=== PATIENT | male | born 1945 | race Caucasian/White ===

== ENCOUNTER → 2019-12-28 14:09 | Outpatient (CLI) | payer MEDICARE, SELFPAY ==
--- NOTE | ~2019-12-28 | XR_ITS ---
XR cervical spine 4-5V 12/28/2019 14:35 Indication: Left shoulder and neck pain Procedure: 4 view cervical spine Comparison: No prior studies for comparison. Findings: No prevertebral soft tissue abnormality. There is disc narrowing at C5-6 and C6-7. No preve rtebral soft tissue swelling. Mild multilevel uncinate hypertrophy. Lung apices are normal. Odontoid process within normal limits. No prevertebral soft tissue swelling. Impression: 1: Mild cervical spondylosis. Reviewed, dictated and finalized at location A. Impression: 1: Mild cervical spondylosis.
--- NOTE | ~2019-12-28 | XR_ITS ---
XR shoulder LT min 2V 12/28/2019 14:35 Indication: Left shoulder pain Procedure: 4 views left shoulder Comparison: No prior studies for comparison. Findings: There is mild polyarticular osteoarthritis of the left shoulder. No fracture or traumatic m alalignment. No focal soft tissue abnormality. Visualized lung parenchyma is unremarkable. Impression: 1: Mild polyarticular osteoarthritis of the left shoulder. Reviewed, dictated and finalized at location A. Impression: 1: Mild polyarticular osteoarthritis of the left shoulder.
== END ==
PROVIDERS: PCP Family Medicine; Visit Provider Family Medicine
DX: M47.892 Other spondylosis, cervical region (principal); M19.012 Primary osteoarthritis, left shoulder
CPT/HCPCS: 72050; 73030

== ENCOUNTER 2020-02-11 00:24 | Outpatient (CLI) | payer MEDICARE, SELFPAY ==
[2020-02-11 18:04] LABS: SARS-CoV-2 RNA PCR Negative
== END 2020-02-11 00:25 | disposition home or self-care (01) ==
LOC: ANHCOVIDDT 00:24
PROVIDERS: PCP Family Medicine; Visit Provider Internal Medicine Gastroenterology
DX: Z01.818 Encounter for other preprocedural examination (principal); Z20.828 Contact with and (suspected) exposure to other viral communicable diseases
CPT/HCPCS: 87635; C9803; U0003

== ENCOUNTER 2020-02-14 01:35 | Day surgery (SDC) | payer MEDICARE, SELFPAY ==
[2020-02-07 14:08] VITALS: BMI 23.6
--- NOTE | 2020-02-14 06:54 | P.PNAN_ITS ---
Anes - Initial Pre Proc Eval Procedure: Operation Date: 02/14/20 08:30 Proposed Procedures p Screening Colonoscopy - Zack Dukes MD Date/Time: 02/14/20 06:54 Surgeon: Zack Dukes MD Pre Op Diagnosis: Neoplasm Screening Patient Data Age: 74 Gender: M Height: 1.73 m Weight: 70.4 kg Allergies Allergy/AdvReac Type Severity Reaction Status Date / Time azithromycin AdvReac Mild upset Verified 02/14/20 07:21 stomach sulfamethoxazole AdvReac Mild Fever Verified 02/14/20 07:21 [From Bactrim] trimethoprim [From Bactrim] AdvReac Mild Fever Verified 02/14/20 07:21 Home Medications Medication Instructions Recorded Confirmed Type ascorbic acid (vitamin C) 250 mg 250 mg PO DAILY 08/26/19 02/07/20 History tablet aspirin 81 mg tablet,delayed 81 mg PO DAILY 08/26/19 02/07/20 History release atenolol 25 mg tablet 12.5 mg PO DAILY 08/26/19 02/07/20 History atorvastatin 20 mg tablet 20 mg PO DAILY 08/26/19 02/07/20 History loratadine 10 mg tablet 10 mg PO DAILY 08/26/19 02/07/20 History multivitamin 1 tablet PO DAILY 08/26/19 02/07/20 History peg 3350-electrolytes 236 240 ml PO Q10M #4000 ml 12/28/19 Rx gram-22.74 gram-6.74 gram-5.86 gram solution Patient hx anesthesia problems: none Family hx anesthesia problems: none PMFSH Past Medical History Medical History (Updated 02/14/20 @ 06:55 by Prem Ferrell MD) Actinic keratosis Adenomatous colon polyp CAD (coronary artery disease) non-obstructive Celiac disease High cholesterol Surgical History Surgical History H/O bilateral inguinal hernia repair H/O elbow surgery S/P lateral meniscus repair of right knee Family History Family History Mother Family history of Alzheimer's disease Father Family history of coronary artery disease Sibling Family history of coronary artery disease Family history of Alzheimer's disease Social History Social History (Updated 09/21/20 @ 16:12 by Randa Rosales Smoking status: Never smoker Second hand tobacco smoke exposure: No Alcohol intake: never Substance use: never Substance use type: does not use Living arrangements: with family Gender identity (if verbalized by the patient): Male Spiritual care concerns: No Anes - Eval Final PreProcedure Day of Procedure 02/14/20 06:54 Patient weight: normal Heart: regular rate and rhythm Lungs: clear to auscultation and normal air movement Airway: Mallampati scale class II Neurological: alert and oriented Last oral intake: >/= 8 hours ASA classification: III Emergent: no Anesthetic plan: proceed Anesthesia type and monitoring: general GIVS Informed Consent: The patient's anesthetic plan and its attendant risks and benefits were discussed with the patient/family/POA. Questions were solicited an d answers provided to the satisfaction of the patient/family/POA.
[2020-02-14 07:23] VITALS: BP 141/79; PULSE 71; RESP 14; TEMP 36.4; O2SAT 96; BMI 24.0
[2020-02-14] MEDS: LACTATED RINGERS 1,000 ML 150 ML IV CONT (07:31)
--- NOTE | 2020-02-14 08:43 | PM.HPGS ---
History of Present Illness History of Present Illness Consent: Risks, benefits, and alternatives have been discussed and questions answered. Patient agrees to proceed with procedure. Chief complaint: Neoplasm Screening Narrative: Cortes Garcia is a 74 year old male with colon polyps 2015 Review of Systems Constitutional: Constitutional: Denies headache(s) and Denies weakness Eyes: Eyes: Denies blurry vision ENT: Reports Normal hearing present, Denies headache(s) and Denies neck pain Cardiovascular: Cardiovascular: Denies chest pain and Denies dyspnea Respiratory: Respiratory: Denies dyspnea Gastrointestinal: Gastrointestinal: Reports no additional gastrointestinal complaints Genitourinary: Genitourinary: Denies dysuria Musculoskeletal: Musculoskeletal: Denies neck pain Integumentary/Breasts: Skin/Breast: Denies dry skin Neurologic: Reports Normal hearing present, Denies headache(s) and Denies weakness Psychiatric: Psychiatric: Denies anxiety Endocrine: Endocrine: Denies change in body appearance Hematologic/Lymphatic: Hematologic/Lymphatic: Denies easy bleeding Allergic/Immunologic: Allergic/Immunologic: Denies urticaria PMF Past Medical History Medical History (Updated 02/14/20 @ 06:55 by Prem Ferrell MD) Actinic keratosis Adenomatous colon polyp CAD (coronary artery disease) non-obstructive Celiac disease High cholesterol Surgical History Surgical History H/O bilateral inguinal hernia repair H/O elbow surgery S/P lateral meniscus repair of right knee Family History Family History Mother Family history of Alzheimer's disease Father Family history of coronary artery disease Sibling Family history of coronary artery disease Family history of Alzheimer's disease Social History Social History (Updated 12/26/19 @ 16:12 by Randa Carter) Smoking status: Never smoker Second hand tobacco smoke exposure: No Alcohol intake: never Substance use: never Substance use type: does not use Living arrangements: with family Gender identity (if verbalized by the patient): Male Spiritual care concerns: No Meds Home Medications and Allergies Home Medications Medication Instructions Recorded Confirmed Type ascorbic acid (vitamin C) 250 mg 250 mg PO DAILY 08/26/19 02/07/20 History tablet aspirin 81 mg tablet,delayed 81 mg PO DAILY 08/26/19 02/07/20 History release atenolol 25 mg tablet 12.5 mg PO DAILY 08/26/19 02/07/20 History atorvastatin 20 mg tablet 20 mg PO DAILY 08/26/19 02/07/20 History loratadine 10 mg tablet 10 mg PO DAILY 08/26/19 02/07/20 History multivitamin 1 tablet PO DAILY 08/26/19 02/07/20 History peg 3350-electrolytes 236 240 ml PO Q10M #4000 ml 12/28/19 Rx gram-22.74 gram-6.74 gram-5.86 gram solution Allergies Allergy/AdvReac Type Severity Reaction Status Date / Time azithromycin AdvReac Mild upset Verified 02/14/20 07:21 stomach sulfamethoxazole AdvReac Mild Fever Verified 02/14/20 07:21 [From Bactrim] trimethoprim [From Bactrim] AdvReac Mild Fever Verified 02/14/20 07:21 Vital Signs Vital Signs - 24 hr 02/14/20 07:23 Temperature 97.6 F Pulse Rate 71 Respiratory Rate 14 Blood Pressure 141/79 H Pulse Oximetry 96 Exam Const: General: comfortable and no acute distress HENMT: General nose exam: Normal nares present Eyes: General: appearance normal, both eyes and all related structures Neck: Neck: no JVD Resp: Auscultation: clear to auscultation bilaterally Cardio: Rate: regular rate Rhythm: regular rhythm GI: Inspection: non-distended GI Palp: Yes Soft to palpation Skin: General skin exam: normal color Neuro: General: gait normal Speech: normal speech Extrem: General: normal to inspection Psych: Mental Status: mental status grossly normal Assessment and Plan Assessment and pl
[2020-02-14 09:04] VITALS: BP 102/62; PULSE 67; RESP 17; O2SAT 99
[2020-02-14 09:14] VITALS: BP 113/75; PULSE 60; RESP 14; O2SAT 99
[2020-02-14 09:24] VITALS: BP 116/73; PULSE 62; RESP 16; O2SAT 99
== END 2020-02-14 09:40 | disposition home or self-care (01) ==
PROVIDERS: PCP Family Medicine; Visit Provider Internal Medicine Gastroenterology
PROC: 0DJD8ZZ Inspection of Lower Intestinal Tract, Via Natural or Artificial Opening Endoscopic (ICD-10-PCS; CPT 45378; principal; 2020-02-14 08:30)
DX: Z12.11 Encounter for screening for malignant neoplasm of colon (principal); D12.0 Benign neoplasm of cecum; K57.30 Diverticulosis of large intestine without perforation or abscess without bleeding; K64.8 Other hemorrhoids; I25.10 Atherosclerotic heart disease of native coronary artery without angina pectoris; E78.00 Pure hypercholesterolemia, unspecified; Z88.2 Allergy status to sulfonamides; Z88.1 Allergy status to other antibiotic agents; Z79.82 Long term (current) use of aspirin; Z79.899 Other long term (current) drug therapy
CPT/HCPCS: 45380; 45385; 88305; C9803; J2001; J2704; J7120; U0003

== ENCOUNTER → 2021-08-20 01:35 | Outpatient (CLI) | payer MEDICARE, SELFPAY ==
[2021-08-20 10:50] LABS: Influenza A QL RT-PCR Negative (Negative); Influenza B QL RT-PCR Negative (Negative); SARS-CoV-2 RNA PCR Negative
== END ==
PROVIDERS: PCP Family Medicine; Visit Provider Physician Assistant
DX: R68.89 Other general symptoms and signs (principal); Z20.822 Contact with and (suspected) exposure to COVID-19
CPT/HCPCS: 87502; C9803; U0003; U0005

== ENCOUNTER 2022-11-13 12:20 | Outpatient (CLI) | payer MEDICARE, SELFPAY ==
--- NOTE | ~2022-11-13 | XR_ITS ---
EXAMINATION: XR shoulder RT min 2V DATE: 11/13/2022 12:44 INDICATION: Right shoulder pain TECHNIQUE: AP internally and externally rotated, AP oblique externally rotated and transscapular Y vi ews of the right shoulder were obtained. COMPARISON: None FINDINGS: Normal alignment. No fracture.Mild glenohumeral and acromioclavicular osteoarthritis. Visualized por tion of the lungs are clear. Soft tissues are unremarkable. IMPRESSION: Mild right glenohumeral and acromioclavicular osteoarthritis. Reviewed, dictated and finalized at location L.
== END 2022-11-13 12:21 | disposition home or self-care (01) ==
PROVIDERS: PCP Family Medicine; Visit Provider Family Medicine
DX: M19.011 Primary osteoarthritis, right shoulder (principal)
CPT/HCPCS: 73030

== ENCOUNTER 2023-07-31 15:26 | Outpatient (CLI) | payer MEDICARE, SELFPAY ==
--- NOTE | ~2023-07-31 | MR_ITS ---
EXAMINATION: MR shoulder RT wo con DATE: 07/31/2023 16:29 INDICATION: Impingement syndrome of the right shoulder TECHNIQUE: Magnetic resonance imaging (MRI) of the right shoulder was performed without intravenous c ontrast. Sequences included axial PD-weighted FS FSE, coronal oblique PD-weighted FS FSE, coronal obl ique T2-weighted FS FSE, sagittal PD-weighted FS FSE, and sagittal T1-weighted SE. COMPARISON: None. FINDINGS: Coracoacromial arch: The acromion undersurface is curved in morphology (type II). Small anterior subacromial spur at the a cromial insertion of the normal coracoacromial ligament. Moderate acromioclavicular osteoarthritis. Rotator cuff: Mild supraspinatus tendinopathy without tear. The infraspinatus and teres minor tendons are normal. M ild subscapularis tendinopathy with very small tear at the superolateral most corner of the lesser tu berosity footplate measuring 4 mm craniocaudally and 3 mm medial to lateral. Normal rotator cuff musc le bulk and signal. Biceps tendon, glenoid labrum and glenohumeral cartilage: Long head of the biceps tendon is normal. Normal anterosuperior sublingual foramen. There is a superi or, anterior to posterior tear of the glenoid labrum (SLAP tear) of the posterosuperior glenoid labru m which extends from the 12:00 to the 9:00 position. More amorphous mild increased signal consistent with degeneration of the anteroinferior labrum. There are tiny marginal osteophytes along the inferio r glenoid. Mild partial-thickness cartilage loss with smooth chondral surface along the cephalad thir d of the glenoid and at the inferomedial aspect of the humeral head. Fluid: Physiologic amount of fluid in the glenohumeral joint and biceps tendon sheath. No loose osteochondr al bodies. No abnormal fluid in the subacromial/subdeltoid bursa to suggest bursitis. Bones: Bone alignment is normal. No fracture or pathologic marrow replacing process. IMPRESSION: 1. Mild glenohumeral osteoarthritis with SLAP tear at the base of the superior to posterior glenoid l abrum and more amorphous degeneration at the anteroinferior labrum. 2. Mild supraspinatus and subscapularis tendinopathy with very small tear at the superolateral corner of the lesser tuberosity footplate of the subscapularis tendon. 3. Moderate acromioclavicular osteoarthritis. Reviewed, dictated and finalized at location A. IMPRESSION: 1. Mild glenohumeral osteoarthritis with SLAP tear at the base of the superior to posterior glenoid labrum and more amorphous degeneration at the anteroinferi or labrum. 2. Mild supraspinatus and subscapularis tendinopathy with very small tear at th e superolateral corner of the lesser tuberosity footplate of the subscapularis tendon. 3. Moderate acromioclavicular osteoarthritis.
== END 2023-07-31 15:27 | disposition home or self-care (01) ==
PROVIDERS: PCP Family Medicine; Visit Provider Orthopaedic Surgery
DX: M75.41 Impingement syndrome of right shoulder (principal); M19.011 Primary osteoarthritis, right shoulder
CPT/HCPCS: 73221

== ENCOUNTER 2023-11-23 09:36 | Outpatient (CLI) | payer MEDICARE, SELFPAY ==
--- NOTE | ~2023-11-23 | MR_ITS ---
EXAMINATION: MR knee RT wo con DATE: 11/23/2023 10:20 INDICATION: Loose body at the right knee TECHNIQUE: Magnetic resonance imaging (MRI) of the right knee was performed without intravenous contr ast. Sequences included coronal PD-weighted FSE, coronal PD-weighted FS FSE, sagittal T2-weighted FS E, sagittal PD-weighted FS FSE, axial T1-weighted FSE and axial PD weighted fat saturated FSE. COMPARISON: None. FINDINGS: Medial compartment: Longitudinal horizontal tear extending to the inferior articular surface of the posterior body and po sterior horn of the medial meniscus. Partial-thickness chondral ulceration involving up to 50% the ca rtilage thickness along the lateral margin of the central weightbearing medial femoral condyle. Lateral compartment: Diffuse complex tear extending from anterior to the posterior horn of the lateral meniscus. Small oss icles along the peripheral margin of the anterior horn and anterior body the lateral meniscus which a ppears centered within the soft tissues posterior and the anterior recess and favor heterotopic ossif ication related to the meniscal tear as opposed to loose osteochondral bodies. Mild partial-thicknes s cartilage loss with tiny marginal osteophytes and minimal subarticular edema-like signal change at the anterolateral margin of the lateral tibial plateau. Cartilage in the lateral compartment is other barker relatively preserved. Patellofemoral compartment: Small region of partial-thickness chondral ulceration without degenerative subchondral changes along the medial margin of the medial patellar facet and at the superomedial margin of the medial trochlea. Remainder of the articular cartilage in the patellofemoral compartment is normal. Ligaments and tendons: Anterior and posterior cruciate ligaments are normal. The medial collateral ligament and fibular jay ateral ligament complex are normal. Extensor mechanism is normal. The visualized medial and lateral h amstring tendons as well as the iliotibial band are normal. Fluid: Moderate-sized knee joint effusion with moderate scattered synovitis at the suprapatellar pouch and a t the anterior recess of the knee. Osseous/other: Normal marrow signal. No fracture or pathologic marrow replacing process. IMPRESSION: 1. Diffusely complex tear of the lateral meniscus. 2. Longitudinal horizontal tear of the posterior body and posterior horn of the medial meniscus. 3. Mild tricompartmental osteoarthritis with small regions of moderate grade chondromalacia in all 3 compartments. 4. Moderate-sized knee joint effusion with moderate scattered synovitis. The ossicle seen along the a nterior and anterolateral margin of the lateral compartment appear centered within the soft tissues a t the periphery of the for lateral meniscus as opposed to bounded by fluid within the anterior recess and favor heterotopic ossicles versus loose osteochondral bodies. Reviewed, dictated and finalized at location A. IMPRESSION: 1. Diffusely complex tear of the lateral meniscus. 2. Longitudinal horizontal tear of the posterior body and posterior horn of the medial meniscus. 3. Mild tricompartmental osteoarthritis with small regions of moderate grade ch ondromalacia in all 3 compartments. 4. Moderate-sized knee joint effusion with moderate scattered synovitis. The os sicle seen along the anterior and anterolateral margin of the lateral compartme nt appear centered within the soft tissues at the periphery of the for lateral meniscus as opposed to bounded by fluid within the anterior recess and favor he terotopic ossicles versus loose osteochondral bodies.
== END 2023-11-23 09:37 ==
LOC: GOSHIMG 09:37
PROVIDERS: PCP Family Medicine; Visit Provider Orthopaedic Surgery
DX: S83.271A Complex tear of lateral meniscus, current injury, right knee, initial encounter (principal); X58.XXXA Exposure to other specified factors, initial encounter; M17.11 Unilateral primary osteoarthritis, right knee; M25.461 Effusion, right knee
CPT/HCPCS: 73721

== ENCOUNTER 2024-01-12 00:47 | Day surgery (SDC) | payer MEDICARE, SELFPAY ==
[2024-01-07 13:51] VITALS: BMI 23.9
--- NOTE | 2024-01-07 13:52 | PC.NURSE ---
Addendum entered by Chandu Young RN 01/07/24 15:22: Patient stopping aspirin 3 days before surgery. Original Note: Report to the Outpatient Waiting Room, entrance under the green pavilion located off [facility], at time _0600_ on date _[id number]_. Planned Procedure Time: _0730_.? Time changes happen often and if your time is changed the preop area will call you the afternoon before. - You and your visitor will be asked to self-screen and do not enter if you have any COVID symptoms. Please call surgeon if you need to reschedule. - A mask is optional within the hospital at this time. Patients may have clear liquids (water, carbonated beverages, clear teas, apple juice) until 3 hours prior to surgery with a maximum of 20 ounces. - No food from midnight until time of surgery and no smoking Take only the following medications with a SIP of water on the morning of surgery: __None DO NOT STOP ANY OF YOUR OTHER PRESCRIPTION MEDICATIONS PRIOR TO SURGERY EXCEPT THE FOLLOWING Medications to discontinue per physician ____All vitamins and fish oil Date to take last [id number] Please no make-up, nail portuguese, hairspray, perfume, deodorant, or body powder the day of surgery.? No jewelry (including any body piercings) or valuables the day of surgery, leave them at home.? Please take a shower or bath the night before, or the morning of, surgery with an antibacterial soap.? Wear comfortable, loose fitting clothing.? . - Jewelry must be removed prior to entering the operating room.? Rings and piercings that are not removed may be cut off. - The hospital will not accept responsibility for valuables.? - Please leave all valuables, including medications, at home the day of surgery. If you are going home after surgery, a licensed bobcat driver/labor must drive you home.? - NO public transportation without another adult if you receive anesthesia. - We recommend that an adult stay with you for 24 hours following discharge. - We also recommend that you do not drive, make important decision, drink alcoholic beverages, or take any drugs that were not prescribed by your health care provider for at least 24 hours after your discharge time. Follow any additional instructions given to you from your surgeon. Telephone instructions given to __Joe__and asked if any additional questions and then verbalized understanding. Patient advised to call surgeon office or pre surgery nurse liaison [phone] if any additional questions.
--- NOTE | 2024-01-07 15:23 | PC.NURSE ---
Notified Sulema at Dr Braden's office that patient is buying a walker to use after surgery.
--- NOTE | 2024-01-11 11:16 | PM.IMHP ---
H&P: HPI History of Present Illness Date/Time: 01/11/24 11:16 Chief Complaint: Right knee lateral meniscus tear and loose bodies Narrative: 78-year-old male who presents today for arthroscopy of his right knee with partial lateral meniscectomy and possible loose body removal, proceed as indicated. Patient started having symptoms in August of this year. He was playing tennis and he was walking off the court when he thinks he may have twisted the knee. He started experiencing significant pain in the anterior lateral aspect of the right knee. He continued through the summer. At times it was rather severe. He was seen in November by Dr. Braden, x-rays that time showed possible loose bodies in the anterior lateral aspect of the knee. He was sent for an MRI scan for thorough evaluation. 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 He had mild chondromalacia to the patellofemoral joint. Moderate size effusion. MRI findings were discussed with the patient. Arthroscopy was offered to the patient to try to help his pain in the knee. Patient would like to proceed with that and presents today for that. Review of Systems Review of Systems: All systems reviewed & are unremarkable except as noted in HPI and below PMFSH Past Medical History Medical History Actinic keratosis (~11/11/23) Adenomatous colon polyp BPH (benign prostatic hyperplasia) CAD (coronary artery disease) non-obstructive Celiac disease High cholesterol Surgical History Surgical History H/O bilateral inguinal hernia repair H/O elbow surgery S/P lateral meniscus repair of right knee Family History Family History Mother Family history of Alzheimer's disease Father Family history of coronary artery disease Atheroscler nonautolg biological bypass graft left leg w/ulceration Atherosclerosis Sibling Family history of coronary artery disease Family history of Alzheimer's disease Sibling No problems noted. 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/Education: retired Additional occupation/education comments: [employer] Gender identity (if verbalized by the patient): Male Sexual Orientation (if Verbalized by the Patient): Straight or Heterosexual Spiritual care concerns: No Meds Home Medications and Allergies Home Medications Medication Instructions Recorded Confirmed Type loratadine 10 mg tablet 10 mg PO DAILY 08/26/19 01/07/24 History multivitamin 1 tablet PO DAILY 08/26/19 01/07/24 History atorvastatin 20 mg tablet 10 mg PO DAILY 10/21/21 01/07/24 History aspirin 81 mg tablet,delayed 81 mg PO DAILY 05/20/23 01/07/24 History release (Adult Low Dose Aspirin) omega 2-gxo-emy-fish oil 300 1 cap PO DAILY 05/20/23 01/07/24 History mg-1,000 mg capsule (Fish Oil) ascorbic acid (vitamin C) 500 mg 500 mg PO DAILY 01/07/24 01/07/24 History tablet (Vitamin C) Allergies Allergy/AdvReac Type Severity Reaction [facility]
--- NOTE | 2024-01-11 11:18 | WPDANESEPPF ---
Anes - Initial Pre Proc Eval Procedure: Operation Date: 01/12/24 07:30 Proposed Procedures p Right Knee Arthroscopy, Partial Lateral Meniscectomy, with Possible Loose Body Removal, Proceed As Indicated - Tico Braden MD Date/Time: 01/11/24 11:18 Surgeon: Tico Braden MD Pre Op Diagnosis: right knee lateral meniscus tear, Patient Data Age: 78 Gender: M Height: 1.73 m Weight: 71.4 kg Allergies Allergy/AdvReac Type Severity Reaction Status Date / Time azithromycin AdvReac Mild upset Verified 01/12/24 07:13 stomach sulfamethoxazole AdvReac Mild Fever Verified 01/12/24 07:13 [From Bactrim] trimethoprim [From Bactrim] AdvReac Mild Fever Verified 01/12/24 07:13 Home Medications Medication Instructions Recorded Confirmed Type loratadine 10 mg tablet 10 mg PO DAILY 08/26/19 01/12/24 History multivitamin 1 tablet PO DAILY 08/26/19 01/12/24 History atorvastatin 20 mg tablet 10 mg PO DAILY 10/21/21 01/12/24 History aspirin 81 mg tablet,delayed 81 mg PO DAILY 05/20/23 01/12/24 History release (Adult Low Dose Aspirin) omega 6-wre-ppf-fish oil 300 1 cap PO DAILY 05/20/23 01/12/24 History mg-1,000 mg capsule (Fish Oil) ascorbic acid (vitamin C) 500 mg 500 mg PO DAILY 01/07/24 01/12/24 History tablet (Vitamin C) Patient hx anesthesia problems: none Family hx anesthesia problems: none Results Review: All pre-operative results and documents have been reviewed as part of the pre-operative evaluation. [facility] Past Medical History Medical History Actinic keratosis (~11/11/23) Adenomatous colon polyp BPH (benign prostatic hyperplasia) CAD (coronary artery disease) non-obstructive Celiac disease High cholesterol Surgical History Surgical History H/O bilateral inguinal hernia repair H/O elbow surgery S/P lateral meniscus repair of right knee Family History Family History Mother Family history of Alzheimer's disease Father Family history of coronary artery disease Atheroscler nonautolg biological bypass graft left leg w/ulceration Atherosclerosis Sibling Family history of coronary artery disease Family history of Alzheimer's disease Sibling No problems noted. 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 Gender identity (if verbalized by the patient): Male Sexual Orientation (if Verbalized by the Patient): Straight or Heterosexual Spiritual care concerns: No Anes - Eval Final PreProcedure Day of Procedure 01/11/24 11:18 Patient weight: normal Heart: regular rate and rhythm Lungs: clear to auscultation Airway: Mallampati scale class II Neurological: alert and oriented Last oral intake: >/= 8 hours ASA classification: III Emergent: no Anesthetic plan: proceed Anesthesia type and monitoring: general LMA and standard monitoring Results Review: All pre-operative results and documents have been reviewed as part of the pre-operative evaluation. Informed Consent: The patient's anesthetic plan and its attendant risks and benefits were discussed with the patient/family/POA. Questions were solicited and answers provided to the s
[2024-01-12] VITALS (9 sets, daily range): BP systolic 128–149; BP diastolic 67–87; PULSE 70–81; RESP 10–18; TEMP 36.3–36.9; O2SAT 98–100
--- NOTE | 2024-01-12 05:52 | ECG_ITS ---
Test Date: 2024-01-12 06:49:05 Measurements Intervals [place] Rate: 60 P: 70 NV: 210 QRS: 58 QRSD: 103 T: 52 QT: 387 QTc: 388 Interpretive Statements SINUS RHYTHM WITH FIRST DEGREE AV BLOCK OTHERWISE NORMAL ELECTROCARDIOGRAM No previous ECG available for comparison Electronically Signed On 01-12-2024 07:34:43 CDT by Ankit Adams M.D.
[2024-01-12] MEDS: ACETAMINOPHEN 500 MG TABLET 1000 MG PO (06:20)
[2024-01-12] MEDS: LACTATED RINGERS 1,000 ML 30 ML IV CONT ×2 (06:25→09:21)
[2024-01-12] MEDS: KETOROLAC 15 MG/ML VIAL (*BKC) IV PUSH (06:30)
--- NOTE | 2024-01-12 07:15 | WPDHPUPDATE1 ---
History and Physical Update Update Date/Time: 01/12/24 07:15 History and Physical has been reviewed, including an updated exam of the patient. There are NO changes in the patient's condition. Risks, benefits, and alternatives have been discussed and questions answered. Patient agrees to proceed with procedure.
[2024-01-12] MEDS: ceFAZolin 2 GM/D5W 50 ML 2 GM/50 ML BAG IVPB (07:29)
[2024-01-12] MEDS: LIDO 1%/EPINEPHRINE 1:100,000 20 ML VIAL 50 ML INFILTRATE (09:00)
--- NOTE | 2024-01-12 09:19 | W.PM.PROC2 ---
Procedure Note - Detailed Date of Procedure 01/12/24 Pre-op Diagnosis right knee lateral meniscus tear, Post-op Diagnosis Same Procedure Performed Arthroscopic partial lateral meniscectomy right knee Surgeon Tico Braden MD [employer] [facility] Anesthesia General Description of Procedure Patient was brought to the operating room and general anesthesia was administered. The right knee was prepped draped usual fashion. Under general anesthesia he continued to have about a 7 degree flexion contracture. He received 2 g of Ancef preoperatively. The joint was injected with the 10 cc 1% lidocaine with epinephrine. Hemostasis was very good and we did not have to put up the tourniquet. Standard arthroscopic portals were placed. The medial compartment was 1st visualized. We knew from the MRI scan he had an undersurface tear longitudinal of the midbody of the medial meniscus. When viewed from the lateral portal we probed this from the anteromedial portal and could not detect any instability or tearing in through to the superior surface of the meniscus. Does he had no medial joint line symptoms this was left alone. Articular surfaces showed chondromalacia of the medial femoral condyle. ACL and PCL with normal. Would appear to be a cyclops spherical mass rested just lateral to the ACL insertion thought to represent hypertrophic stump of the superior fibers of the root of the lateral meniscus. The anterior horn lateral meniscus showed complex tearing and marked enlargement. Arthroscopic partial lateral meniscectomy was carried out alternating between anterolateral and anteromedial working portals. The superior call mass was partially resected with the shaver leaving a core that would not shave and we removed this with a grasping clamp and it was a 5 x 4 x 4 mm ossification fragment. There was a deeper radial tear inferior aspect of lateral meniscus at junction of anterior horn and midbody. Midbody was partially resected to transition this to the apex of the radial tear. Posterior horn of the lateral meniscus was intact and left alone. The articular surfaces of the lateral compartment looked excellent. ACL and PCL were well visualized. We then carefully looked at the joint capsule anterior to the anterior horn lateral meniscus where x-rays and MRI scan demonstrated heterotopic bone that was believed to be extra-articular and I could not palpate any heterotopic bone on the synovial surface anterior to the anterior horn and these areas of heterotopic ossification are believed to be therefore deep within the fat pad lateral to patellar tendon. Arthroscope was placed in the suprapatellar pouch without masses noted and the patellofemoral joint visualized and showed no chondromalacia. Hemostasis with the ArthroCare of the anterolateral synovial tissue was performed. 4 cc of 1% lidocaine with epi were injected into the soft tissues around the portals and 6 more into the joint itself. This completed the procedure. The portals were closed with 5 0 nylon suture. He was transferred postop recovery room stable condition. [facility] Billing Surgery - Charge Forward: Surgery Billing (Arthroscopic partial lateral meniscectomy right knee the)
== END 2024-01-12 11:22 | disposition home or self-care (01) ==
PROVIDERS: PCP Family Medicine; Visit Provider Orthopaedic Surgery
PROC: (CPT 29870; principal; 2024-01-12 07:30)
DX: S83.271A Complex tear of lateral meniscus, current injury, right knee, initial encounter (principal); M94.261 Chondromalacia, right knee; N40.0 Benign prostatic hyperplasia without lower urinary tract symptoms; L57.0 Actinic keratosis; I25.10 Atherosclerotic heart disease of native coronary artery without angina pectoris; K90.0 Celiac disease; E78.00 Pure hypercholesterolemia, unspecified; I44.0 Atrioventricular block, first degree; Z79.82 Long term (current) use of aspirin; Z98.890 Other specified postprocedural states; X50.0XXA Overexertion from strenuous movement or load, initial encounter; Z86.0100 Personal history of colon polyps, unspecified; Z82.49 Family history of ischemic heart disease and other diseases of the circulatory system
CPT/HCPCS: 29881; 93005; A9270; J0690; J1100; J1596; J1885; J2003; J2004; J2371; J2405; J2704; J3010; J7120

== ENCOUNTER 2025-01-09 11:00 | Outpatient (CLI) | payer MEDICARE, SELFPAY ==
--- NOTE | ~2025-01-09 | XR_ITS ---
Examination: XR chest 2V Clinical History: R05.9 - Cough, unspecified Comparison: None Technique: PA and Lateral Findings: Cardiomediastinal silhouette normal size and configuration. Small nodular focus left upper lobe overlying left medial scapula. No focal airspace consolidation or pleural effusion. No acute bony abnormality. IMPRESSION: 1. Recommend CT chest to exclude left upper lobe nodule. 2. No evidence of pneumonia. Reviewed, dictated and finalized at location R.
== END 2025-01-09 11:01 | disposition home or self-care (01) ==
LOC: MICIMG 11:03
PROVIDERS: PCP Family Medicine; Visit Provider Family Medicine
DX: R05.9 Cough, unspecified (principal)
CPT/HCPCS: 71046

== ENCOUNTER 2025-01-13 14:25 | Emergency (ER) | payer MEDICARE, SELFPAY ==
--- NOTE | ~2025-01-13 | CT_ITS ---
Exam: CT chest without contrast Clinical History: [Left-sided chest discomfort ] Comparison: [ None available] Technique: Multiple axial CT images of the chest with with IV contrast. Sagittal and coronal reformatted images were obtained. FINDINGS: Lungs and pleura: [ No pulmonary embolism identified.] Tracheobronchial tree is patent. No pneumothorax. No pleural effusion. Small patchy and groundglass opacities in the lower lungs. There is a 1.3 cm pulmonary nodule in the left upper lobe with a few adjacent less than 5 mm pulmonary nodules. Mediastinum and pulmonary martin: [ No mass or adenopathy.] Axillary/intramammary and supraclavicular: [ No mass or adenopathy.] Heart and great vessels: [ Normal heart size.[ [ No pericardial effusion.] [ No aneurysm.] Mild atherosclerotic disease in the thoracic aorta. Chest Wall: [ Unremarkable.] Upper Abdomen: [ No significant findings.] Osseous structures: [ No acute fracture or destructive lesion.] [ Multilevel degenerative change in the visualized spine.] Additional findings: [ None of significance.] IMPRESSION: 1. No pulmonary embolism identified. 2. Small patchy and groundglass opacities in the lower lungs. Differential includes atelectasis/scarring or infiltrates. Reviewed, dictated and finalized at location Q. IMPRESSION: 1. No pulmonary embolism identified. 2. Small patchy and groundglass opacities in the lower lungs. Differential incl udes atelectasis/scarring or infiltrates.
--- NOTE | ~2025-01-13 | XR_ITS ---
EXAMINATION: XR chest 1V portable COMPARISON: No comparisons available. HISTORY: CP FINDINGS: The lungs are clear, no effusion. No pneumothorax. Heart is normal size. Mediastinal and hilar contours are within normal limits. Bony thorax no acute abnormality. Miscellaneous: None Impression: No acute cardiopulmonary abnormality. Reviewed, dictated and finalized at location P. Impression: No acute cardiopulmonary abnormality.
--- NOTE | 2025-01-13 14:28 | ECG_ITS ---
Test Date: 2025-01-13 14:33:41 Measurements Intervals [place] Rate: 74 P: 48 [place]: 184 QRS: 49 QRSD: 97 T: 50 QT: 375 QTc: 418 Interpretive Statements SINUS RHYTHM CANNOT R/O SEPTAL INFARCT, AGE INDETERMINATE BORDERLINE ST ABNORMALITY- ANTEROLAT/INF LEADS BASELINE ARTIFACT- I, II, III, AVR, AVL, AVF ABNORMAL ECG Compared to ECG 01/12/2024 06:49:05 FIRST DEGREE AV BLOCK NO LONGER PRESENT Electronically Signed On 01-13-2025 14:44:35 CDT by Chilango Friedman D.O.
[2025-01-13 14:38] VITALS: BP 175/98; PULSE 84; RESP 22; TEMP 36.2; O2SAT 98
[2025-01-13 14:55] LABS: Hematocrit 43.8 % (42.0-52.0); Hemoglobin 14.3 g/dL (14.0-18.0); Immature Granulocyte Percent A 0.2 % (0-0.5); Lymphocytes Absolute Auto 1.33 K/mm3 (0.9-3.2); Mean Corpuscular HGB Conc 32.6 g/dl (32-36); Mean Corpuscular Hemoglobin 32.0 pg (26-34); Mean Corpuscular Volume 98.0 fl (80-100); Nucleated Red Blood Cells Absolute Auto 0.000 K/mm3 (0.0-0.012); Nucleated Red Blood Cells Perc 0.0 % (0.0-0.2); Platelet Count Result 208 k/mm3 (150-375); Red Blood Count 4.47 M/mm3 (4.6-6.20); White Blood Count 6.6 K/mm3 (4.5-10.0)
--- NOTE | 2025-01-13 14:58 | ED.CHESTPAIN ---
HPI - Chest Pain General Chief Complaint: Chest Pain Stated Complaint: chest pain, lightheaded, high bp Time Seen by Provider: 01/13/25 14:31 History of Present Illness HPI narrative: This is a 79-year-old male with history of mitral valve prolapse denies cholesterol presenting for chest discomfort x1 month. Patient says that he has in on sensation in his chest that he is having difficulty describing. He says it feels like something is moving or pushing against his lungs and heart. It is intermittent throughout the day in intensity but never completely goes away. Patient felt the sensation today and then checked his blood pressure is elevated which prompted him to go to his primary care physician and he was then referred to the ER. The chest discomfort associated with dry cough. It is not related to exertion diaphoresis radiation or vomiting. He denies fevers. He says that he has occasionally felt short of breath over the last month. He denies abdominal pain or GI symptoms. No urinary symptoms. No lower extremity edema. History of DVT or PE. Related Data Home Medications ?Medication ?Instructions ?Recorded ?Confirmed ?Last Taken ?Type loratadine 10 mg tablet 10 mg PO DAILY 08/26/19 01/09/25 02/12/20 History multivitamin 1 tablet PO DAILY 08/26/19 01/09/25 02/12/20 History atorvastatin 20 mg tablet 10 mg PO DAILY 10/21/21 01/09/25 Unknown History aspirin 81 mg tablet,delayed 81 mg PO DAILY 05/20/23 01/09/25 Unknown History release (Adult Low Dose Aspirin) omega 7-tdx-ibx-fish oil 300 1 cap PO DAILY 05/20/23 01/09/25 Unknown History mg-1,000 mg capsule (Fish Oil) ascorbic acid (vitamin C) 500 mg 500 mg PO DAILY 01/07/24 01/09/25 Unknown History tablet (Vitamin C) Allergies Allergy/AdvReac Type Severity Reaction Status Date / Time azithromycin AdvReac Mild upset Verified 01/13/25 14:53 stomach sulfamethoxazole (From AdvReac Mild Fever Verified 01/13/25 14:53 Bactrim) trimethoprim (From Bactrim) AdvReac Mild Fever Verified 01/13/25 14:53 PMF Past Medical History Medical History (Updated 01/13/25 @ 19:05 by Christiano Stokes MD) BPH (benign prostatic hyperplasia) Adenomatous colon polyp Actinic keratosis (~11/11/23) High cholesterol Celiac disease CAD (coronary artery disease) non-obstructive Surgical History Surgical History H/O bilateral inguinal hernia repair H/O elbow surgery S/P lateral meniscus repair of right knee Family History Family History Mother Family history of Alzheimer's disease Father Family history of coronary artery disease Atheroscler nonautolg biological bypass graft left leg w/ulceration Atherosclerosis Sibling Family history of coronary artery disease Family history of Alzheimer's disease Sibling No problems noted. 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 Head: atraumatic.EYES: EOMI, NOSE: Atraumatic NECK: Trachea midline RESPIRATORY: No increased rate of breathing, clear to auscultation CARDIOVASCULAR: RRR, no peripheral edema ABDOMINAL: Non-distended soft nontender MUSCULOSKELETAl: No obvious deformities NEURO: Alert. Moving 4/4 extremities SKIN:: Warm, dry. Normal color PSYCHIATRIC: Anxious appearing Independent EKG interpretation: Rhythm [sinus], Rate [74], [place] -[normal], NE -[normal], QRS [narrow], QTC [normal], T waves -[negative for concerning inversions], ST Segments - St depressions II,III,AVF, V4-V^ Final interpretations: [Normal Sinus Rhythm] Course Vital Signs Vital signs: Vital Signs Temperature 97.2 F L 01/13/25 14:38 Pulse Rate 84 01/13/25 14:38 Respiratory Rate 22 H 01/13/25 14:38 Blood Pressure 175/98 H 01/13/25 14:38 Pulse Oximetry 98 01/13/25 14:38 Oxygen Delivery Room Air 01/13/25 14:38 Temperature 97.2 F L 01/13/25 14:38 Pulse Rate 68 01/13/25 18:08 Respiratory Rate 18 01/13/25 18:08 Blood Pressure 160/91 H 01/13/25 18:08 Pulse Oximetry 98 01/13/25 18:08 Oxygen Delivery Room Air 01/13/25 14:54 MDM - Chest Pain MDM Narrative Medical decision making narrative: -Course: 71-year-old male presenting with vague chest discomfort x1 month associated with a dry cough. Patient is very anxious about his health. His physical exam is unremarkable outside some elevations in blood pressure. CT of the chest negative for acute findings such as PE pneumonia or aneurysm. It showed some ground-glass opacities in lower lobes which I feel favors atelectasis. It also showed a left-sided pulmonary nodule that the patient is having worked up by his primary care physician. Further management per the primary care physician in that regard. Troponins were negative x2. Initial EKG showed borderline ST abnormalities in the inferior leads although this resolved on the 2nd EKG. Patient's presentation is not consistent with ACS especially given his length of symptoms. No clear etiology of the patient's vague chest discomfort although no life threats detected. Patient will need to follow-up with his primary care physician for referral for further management his pulmonary nodule. He is scheduled to see his financial adviser next week. Results were discussed with the patient and he is comfortable following up outpatient. Given return precautions. -DDX includes but is not limited to: Anxiety, ACS, viral syndrome, postnasal drip, GERD, pneumonia, PE neoplasm Lab Data 01/13/25 14:49 01/13/25 14:49 Labs: Lab Results 01/13/25 01/13/25 Range/Units 14:49 17:57 WBC 6.6 (4.5-10.0) K/mm3 RBC 4.47 L (4.6-6.20) M/mm3 Hgb 14.3 (14.0-18.0) g/dL Hct 43.8 (42.0-52.0) % MCV 98.0 (80-100) fl MCH 32.0 (26-34) pg MCHC 32.6 (32-36) g/dl RDW 13.8 (11.5-14.5) % Plt Count 208 (150-375) k/mm3 MPV 9.5 (7.4-10.4) fl Immature Gran % (Auto) 0.2 (0-0.5) % Neut % (Auto) 66.2 (45.5-73.1) % Lymph % (Auto) 20.3 (18.3-44.2) % [place] % (Auto) 11.3 H (2.6-8.5) % Eos % (Auto) 1.4 (0-4.4) % Baso % (Auto) 0.6 (0.2-1.2) % Lymph # (Auto) 1.33 (0.9-3.2) K/mm3 [place] # (Auto) 0.7 H (0.1-0.6) K/mm3 Eos # (Auto) 0.1 (0-0.3) K/mm3 Baso # (Auto) 0.0 (0.0-0.1) K/mm3 Abs Immat Gran (auto) 0.01 (0.00-0.031) K/mm3 Absolute Neuts (auto) 4.3 (1.3-6.7) K/mm3 Absolute Nucleated RBC 0.000 (0.0-0.012) K/mm3 Nucleated RBC % 0.0 (0.0-0.2) % PT 13.0 (11.1-14.7) Seconds INR 1.0 APTT 23.9 (22.3-36.8) Seconds Sodium 138 (137-145) mmol/L Potassium 4.0 (3.4-5.0) mmol/L Chloride 101 (98-107) mmol/L Carbon Dioxide 28 (22-30) mmol/L Anion Gap 9 (4-12) mmol/L BUN 14 (9-20) mg/dL Creatinine 0.80 (0.7-1.3) mg/dL Estim Creat Clear Calc 66 ml/min Estimated GFR > 60 (59 - ) Glucose 150 H (65-110) mg/dL Calcium 9.5 (8.4-10.2) mg/dL Total Bilirubin 0.5 (0.2-1.3) mg/dL AST 43 (17-59) U/L ALT 30 (6-50) U/L Alkaline Phosphatase 89 (38-126) U/L Troponin I < 0.012 < 0.012 (0.000-0.034) ng/mL NT-Pro-B Natriuret Pep 58 (19.9-100) pg/mL Total Protein 8.6 H (6.3-8.2) g/dL Albumin 4.6 (3.5-5.1) g/dL Lipase 47 (23-300) U/L Discharge Plan Discharge Clinical Impression: Atypical chest pain Patient Disposition: Home Condition: Stable Instructions: Antibiotic Form, Chest Pain (DC) Additional Instructions: You were seen in the emergency department for chest discomfort. Your CT showed a left pulmonary nodule which needs further evaluation but is unlikely the cause of her symptoms. Please follow-up with your primary care physician for further management. If you develop any new symptoms worsening chest pain or shortness of breath please return to the ED for re-evaluation. Patient Language: Azeri Prescriptions: No Action multivitamin Tablet 1 tablet PO DAILY loratadine 10 mg tablet 10 mg PO DAILY atorvastatin 20 mg tablet 10 mg PO DAILY omega 2-lzn-bwn-fish oil [Fish Oil] 300-1,000 mg capsule 1 cap PO DAILY aspirin [Adult Low Dose Aspirin] 81 mg tablet,delayed release (DR/EC) 81 mg PO DAILY ascorbic acid (vitamin C) [Vitamin C] 500 mg Tablet 500 mg PO DAILY Follow-up/Referrals: Daniel Reza MD [Primary Care Provider, Family Practice] - 3 Days Referral Note: ED f/u, Chest discomfort, pulmonary nodule
[2025-01-13 15:09] LABS: Alanine Aminotransferase 30 U/L (6-50); Albumin Level 4.6 g/dL (3.5-5.1); Alkaline Phosphatase 89 U/L (38-126); Anion Gap 9 mmol/L (4-12); Aspartate Amino Transferase 43 U/L (17-59); Bilirubin,Total 0.5 mg/dL (0.2-1.3); Blood Urea Nitrogen 14 mg/dL (9-20); Calcium 9.5 mg/dL (8.4-10.2); Carbon Dioxide 28 mmol/L (22-30); Chloride 101 mmol/L (98-107); Estimated CRCL calculation 66 ml/min; Estimated Glomerular Filt Rate > 60; Glucose 150 mg/dL (65-110); Lipase 47 U/L (23-300); Potassium 4.0 mmol/L (3.4-5.0); Sodium 138 mmol/L (137-145); Total Protein 8.6 g/dL (6.3-8.2)
[2025-01-13] MEDS: ASPIRIN 81 MG CHEWABLE TABLET 324 MG PO (15:10)
[2025-01-13 15:20] LABS: Troponin I < 0.012 ng/mL (0.000-0.034)
[2025-01-13 15:32] LABS: INR 1.0; Partial Thromboplastin Time 23.9 Seconds (22.3-36.8); Prothrombin Time 13.0 Seconds (11.1-14.7)
[2025-01-13 16:23] LABS: NT Pro B Type Natriuretic Pept 58 pg/mL (19.9-100)
--- NOTE | 2025-01-13 17:36 | ECG_ITS ---
Test Date: 2025-01-13 18:02:26 Measurements Intervals [place] Rate: 64 P: 58 [place]: 212 QRS: 41 QRSD: 97 T: 48 QT: 385 QTc: 400 Interpretive Statements SINUS RHYTHM WITH FIRST DEGREE AV BLOCK BORDERLINE ECG Compared to ECG 01/13/2025 14:33:41 First degree AV block now present Electronically Signed On 01-13-2025 18:33:56 CDT by Chilango Friedman D.O.
[2025-01-13 18:08] VITALS: BP 160/91; PULSE 68; RESP 18; O2SAT 98
[2025-01-13 18:24] LABS: Troponin I < 0.012 ng/mL (0.000-0.034)
== END 2025-01-13 19:19 | disposition home or self-care (01) ==
PROVIDERS: Emergency Medicine; Emergency Provider Emergency Medicine; PCP Family Medicine
DX: R07.89 Other chest pain (principal); R06.02 Shortness of breath; I34.1 Nonrheumatic mitral (valve) prolapse; I25.10 Atherosclerotic heart disease of native coronary artery without angina pectoris; E78.00 Pure hypercholesterolemia, unspecified; N40.0 Benign prostatic hyperplasia without lower urinary tract symptoms; K90.0 Celiac disease; Z86.0101 Personal history of adenomatous and serrated colon polyps; Z79.82 Long term (current) use of aspirin; Z79.899 Other long term (current) drug therapy; R94.31 Abnormal electrocardiogram [ECG] [EKG]; I44.0 Atrioventricular block, first degree
CPT/HCPCS: 36415; 71045; 71275; 80053; 83690; 83880; 84484; 85025; 85610; 85730; 93005; 99284; A9270; Q9967

== ENCOUNTER 2025-03-14 03:24 | Day surgery (SDC) | payer MEDICARE, SELFPAY ==
[2025-02-21 08:45] VITALS: BMI 23.4
--- NOTE | 2025-02-21 08:59 | PC.NURSE ---
PAT interview given to patient. Pt described having recent chest discomfort in is upper abdomen/lower chest. Denied any other cardiac symptom. Pt stated he has had this discomfort for over a month and has seen his foreign food cook specialty, PCP, and has been to the ER. He wondered if there is something wrong with his pericardium support as it feels like his heart is moving at times. Pt stated he had discomfort last night and is planning on calling his doctor today. Cardiac clearance and request for recent Echo requested from Dr. Jung's office, who he saw on 02/19/25.
--- OUTSIDE RECORDS SUMMARY | 2025-03-14 03:27 | XMS_ITS | Clinical Summary ---
Author Organization [facility] Address [facility] [place] [address] Care Team Providers Care 411 Directory Assistance Operator Name Role Phone Daniel Reza MD Primary Care Provider Allergies Active Allergy Reactions Criticality Noted Date Comments Erythromycin Nausea only Medium 09/25/2016 Medications ascorbic acid (ascorbic acid) 500 mg tablet,chewable Take 1 tablet by mouth daily 5 Active aspirin 81 mg enteric coated tablet Take 81 mg by mouth daily 9 Active loratadine (CLARITIN) 10 mg tablet Take 1 tablet by mouth daily 3 Active losartan (COZAAR) 25 mg tablet Take 1 tablet (25 mg total) by mouth daily 5 Active atorvastatin (LIPITOR) 10 mg tablet Take 1 tablet (10 mg total) by mouth daily 5 Active fish oil-dha-epa 1,200-144-216 mg capsule Take by mouth daily Active atorvastatin (LIPITOR) 20 mg tablet TAKE 1 TABLET BY MOUTH AT BEDTIME 1 03/07/20 25 Discontinu ed(Patient Reported) Active Problems Problem Noted Date Diagnosed Date Elevated PSA 10/25/2020 Bradycardia 09/23/2018 Drug-induced erectile dysfunction 09/23/2018 Coronary artery disease invo lving barrow coronary 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 09/25/2016 Dyslipidemia 09/25/2016 Nonrheumatic mitral valve regurgitation 09/26/19 17 Encounters Date Type Department Care Team Description 03/08/2025 10:15 AM DIGESTER OPERATOR HELPER Ancillary Procedure Heart [facility] [place] [address] [address] [place] [address] Chest pain, unspecified type 03/07/2025 3:30 PM DIGESTER OPERATOR HELPER Office Visit [facility] Medicine Cardiology [address] [facility] Medical [address] [place] [id number] Vitaliy Heart MD Encounter to establish care (Primary Dx); Chest pain, unspecified type; Primary hypertension 02/24/2025 Documentation [facility] Medicine Scheduling [address] [place] [address] Ricki Reeves IM DOC 02/21/2025 Telephone [facility] Cardiology [address] [facility] Advanced Medicine 8th [place] [address] [place] [id number] Kassandra Blandon 01/31/2025 Orders Only [facility] Scanning, Provider from Last 3 Months Social History Tobacco Use Types Packs/Day Years Used Date Smoking Tobacco: Never Sex and Gender Information Value Date Recorded Sex Assigned at Not on file Legal Sex Male 6:25 PM DIGESTER OPERATOR HELPER Gender Identity Not on file Sexual Orientation Not on file Last Filed Vital Signs Vital Sign Reading Time Taken Comments Blood Pressure 130/76 03/07/2025 3:23 PM DIGESTER OPERATOR HELPER Pulse 80 03/07/2025 3:20 PM DIGESTER OPERATOR HELPER Temperature 35.6 C (96.1 F) 10/25/2020 9:45 AM CDT Respiratory Rate - - Oxygen Saturation 99% 03/07/2025 3:20 PM DIGESTER OPERATOR HELPER Inhaled Oxygen Concentration - - Weight 71.7 kg (158 lb) 03/07/2025 3:20 PM DIGESTER OPERATOR HELPER Height 175.3 cm (5' 9) 03/07/2025 3:20 PM DIGESTER OPERATOR HELPER Body Mass Index 23.33 03/07/2025 3:20 PM DIGESTER OPERATOR HELPER Plan of Treatment Health Maintenance Due Date Last Done Comments Depression Screening 1945 Fall Risk Assessment 1945 Hepatitis C Screening 1945 DTaP/Tdap/Td Vaccine (1 - Tdap) 1957 Hepatitis B Screening 1964 Pneumococcal vaccine 65+ (1 of 1 - PCV) 1996 Zoster Vaccine (1 of 2) 1996 Well Visit 65+ 10/06/2011 Influenza Vaccine (#1) 2024 Procedures Procedure Name Priority Date/Time Associated Diagnosis Comments CARDIOLOGY DOCUMENT SCAN 01/31/2025 from Last 3 Months Results * Cardiology Document Scan (01/31/2025) Anatomical Region Laterality Modality Other us Provider Scanning CV CARDIAC SERVICES PROCEDURES Edited Result - Final from Last 3 Months Insurance [facility] MEDIC[facility]ANT[facility] Address: [address] [place] [phone] [facility] MEDICARE AD[facility]ANTAGE [facility] Address: [address] [address] [place] [address] Care Teams 411 Directory Assistance Operator Relationship Specialty Start Date End Date Daniel Reza MD [address] [address] PCP - General Family Medicine 10/22/20
--- OUTSIDE RECORDS SUMMARY | 2025-03-14 03:27 | XMS_ITS | Encounter Summary ---
Author Organization [facility] Address [address] [place] [address] Phone Care Team Providers Care Apple Picker Name Role Phone Daniel Reza MD Primary Care Provider Encounter Details Date Type Department Care Team (Late st Contact Info) Description 02/21/2025 Telephone [facility] Cardiology [facility] [place] Medicine 8th [place] [address] [place] [address] Kassandra Blandon Social History Tobacco Use Types Packs/Day Years Used Date Smoking Tobacco: Never Assessed Sex and Gender Information Value Date Recorded Sex Assigned at Not on file Legal Sex Male 6:25 PM PODIATRY DOCTOR Gender Identity Not on file Sexual Orientation Not on file documented as of this encounter Miscellaneous Notes * Telephone Encounter - Elvira Genao - 02/21/2025 3:38 PM CST Requested records from [facility] ATRY DOCTOR * Telephone Encounter - Kassandra Blandon - 02/21/2025 11:26 AM CST CARDIOLOGY NEW PATIENT RECORDS REVIEW Insurance Information [facility] [employer] Insurance Provider: [facility] Medicare Group number: [id number] Diagnosis and Referring Provider Information (Check for Referrals in Epic) Cardiac Diagnosis: hypertension Chest Pain Referring Provider: self Referring Provider Specialty: Referring Provider Phone: Current/Former Plant Utility Person (if different from referring provider): Dr. Sayda Jung Current/Former Plant Utility Person Questions to Determine Placement for Specialty Clinics Cardiology-Oncology (For new amyloidosis referrals, complete RRS and send to [facility] NEW PT POOL and send an encounter to the [place] pool to make them aware.) Are you actively undergoing cancer treatments including radiation, chemotherapy, or immunotherapy or is this planned in the future?: no When: Where: Congenital Is this a heart condition that has existed since : no Maternal- Cardiology (Females Only) Are you or had a baby in the past year: no Sports Medicine Do you regularly exercise or play sports: no Are the symptoms or concerns associated with acviity: no Hypertension (If yes, must be referred by MD) Are you a hemodialysis or peritoneal dialysis patient: no Referring provider: Cardiology History Questions Have you been hospitalized for cardiac issues: no When: Where: Have you had an echo: yes When: 01/31/25 Where: [place], [place] Have you had a stress test: yes When: 01/27 Where: [place], [place] Have you had an EKG: yes When: 2024 Where: [place], [place] Have you had a holter monitor: no When: Where: Have you had cardiac imaging(CT or MRI): no Testing/imaging: When: Where: Have you had any procedures (cath, CABG, cardioversion, or ablation): no When: Where: Have you had a sleep study done: no When: Where: Do you have an implantable cardiac device: no Type: Hemotherapist: When: Where: Appointment Details Date: 03/07/25 Time: 3:30 pm Location: [facility] Provider: JEANINE ATRY DOCTOR documented in this encounter Plan of Treatment Not on file documented as of this encounter Visit Diagnoses Not on filedocumented in this encounter Care Teams Apple Picker Relationship Specialty Start Date End Date Daniel Reza MD [address] [facility] [address] [place] [address] PCP - General Family Medicine 10/22/20 documented as of this encounter
--- OUTSIDE RECORDS SUMMARY | 2025-03-14 03:27 | XMS_ITS | Encounter Summary ---
Author Organization [facility] Address [address] [place] [address] Care Team Providers Care Scene Shifter Name Role Phone Daniel Reza MD Primary Care Provider [phone] Sayda Jung MD Unavailable [phone] Encounter Details Date Type Department Care Team (Late Contact Info) Description 01/30/2025 Results Follow-Up [facility] [facility], [address] [place], [place] [id number] [place] [address] IMAGE STUDY Social History Tobacco Use Types Packs/Day Years Used Date Smoking Tobacco: Former Cigarettes Smokeless Tobacco: Never Comments:as a teenager Alcohol Use Standard Drinks/Week Comments No 0 (1 standard drink = 0.6 oz pur e alcohol) Sex and Gender Information Value Date Recorded Sex Assigned at Not on file Legal Sex Male 2:48 AM CDT Gender Identity Not on file Sexual Orientation Not on file 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 [address] [place], [place] [phone] documented as of this encounter Visit Diagnoses Not on filedocumented in this encounter Care Teams Scene Shifter Relationship Specialty Start Date End Date Daniel Reza MD [address] [place] [address] PCP - General FAMILY PRACTICE 09/05/15 Sayda Jung MD [facility]. [facility] [address] [place] [address] Bolton Panelboard Assembler CARDIOVASCULAR DISEASE 09/05/15 documented as of this encounter
--- OUTSIDE RECORDS SUMMARY | 2025-03-14 03:27 | XMS_ITS | Encounter Summary ---
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 [address] [place], [place] [phone] documented as of this encounter Procedures Procedure Name Priority Date/Time Associated Diagnosis Comments COMPREHENSIVE METABOLIC PANEL Routine 01/13/2025 CBC, MANUAL DIFF Routine 01/13/2025 HEMOGLOBIN, GLYCOSYLATED Routine 01/02/2025 COMPREHENSIVE METABOLIC PANEL Routine 01/02/2025 LIPID PANEL Routine 01/02/2025 CBC, MANUAL DIFF Routine 01/02/2025 COMPREHENSIVE METABOLIC PANEL Routine 11/10/2023 LIPID PANEL Routine 11/10/2023 CBC, MANUAL DIFF Routine 11/10/2023 THYROID STIM HORMONE TSH Routine 11/10/2023 COMPREHENSIVE METABOLIC PANEL Routine 10/28/2022 documented in this encounter Results * COMPREHENSIVE METABOLIC PANEL (01/13/2025) SODIUM S/P/B 138 GLUCOSE 150 mg/dL AST 43 BUN 14 CREATININE S/P/B 0.80 0.7 - 1.3 CALCIUM S/P/B 9.5 POTASSIUM S/P/B 4.0 CHLORIDE S/P/B 101 ALT 30 GFR ESTIMATE >60 us Default History Genericprovider LABORATORY Edited Result - Final * CBC, MANUAL DIFF (01/13/2025) WBC 6.6 HGB 14.3 HCT 43.8 PLT 208 us Default History Genericprovider LABORATORY Edited Result - Final * COMPREHENSIVE METABOLIC PANEL (01/02/2025) SODIUM S/P/B 141 GLUCOSE 92 mg/dL AST 26 BUN 12 CREATININE S/P/B 0.84 0.7 - 1.3 CALCIUM S/P/B 9.2 POTASSIUM S/P/B 5.1 CHLORIDE S/P/B 104 ALT 20 GFR ESTIMATE 89 Default History Genericprovider LABORATORY Edited Result - Final * LIPID PANEL (01/02/2025) CHOLESTEROL 133 TRIGLYCERIDES 74 HDL 39 LDL (CALCULATED) 79 Default History Genericprovider LABORATORY Edited Result - Final * CBC, MANUAL DIFF (01/02/2025) WBC 5.6 HGB 14.4 HCT 43.3 PLT 227 Default History Genericprovider LABORATORY Edited Result - Final * HEMOGLOBIN, GLYCOSYLATED (01/02/2025) Pathologist [facility] HGB A1C 5.8 % Result [facility] Default History Genericprovider LABORATORY Edited Result - Final * COMPREHENSIVE METABOLIC PANEL (11/10/2023) Pathologist [facility] SODIUM S/P/B 141 GLUCOSE 93 mg/dL AST 24 BUN 10 CREATININE S/P/B 0.82 0.7 - 1.3 CALCIUM S/P/B 9.7 POTASSIUM S/P/B 5.2 CHLORIDE S/P/B 103 ALT 16 GFR ESTIMATE 90 Result [facility] Default History Genericprovider LABORATORY Edited Result - Final * LIPID PANEL (11/10/2023) Pathologist [facility] CHOLESTEROL 148 TRIGLYCERIDES 89 HDL 39 LDL (CALCULATED) 92 Result [facility] Default History Genericprovider LABORATORY Edited Result - Final * CBC, MANUAL DIFF (11/10/2023) Pathologist [facility] WBC 7.1 HGB 14.0 HCT 43.4 PLT 237 Default History Genericprovider LABORATORY Edited Result - Final * THYROID STIM HORMONE TSH (11/10/2023) Pathologist [facility] TSH 2.210 Default History Genericprovider LABORATORY Edited Result - Final * COMPREHENSIVE METABOLIC PANEL (10/28/2022) SODIUM S/P/B 142 GLUCOSE 95 mg/dL AST 24 BUN 16 CREATININE S/P/B 0.89 0.7 - 1.3 CALCIUM S/P/B 9.5 POTASSIUM S/P/B 5.1 CHLORIDE S/P/B 103 ALT 26 GFR ESTIMATE 89 Narrative Resulting Agency Comment us Default History Genericprovider LABORATORY Final Result documented in this encounter Visit Diagnoses Not on filedocumented in this encounter Care Teams Design Lead Relationship Specialty Start Date End Date Daniel Reza MD [address] [place] [address] PCP - General FAMILY PRACTICE 09/05/15 Sayda Jung MD [facility] [address] [place] [address] Mckenna Lime Mixer CARDIOVASCULAR DISEASE 09/05/15 documented as of this encounter
--- OUTSIDE RECORDS SUMMARY | 2025-03-14 03:27 | XMS_ITS | Encounter Summary ---
Author Organization [facility] Address [address] [place] [address] Phone Care Team Providers Care Supervisor Roller Shop Name Role Phone Daniel Reza MD Primary Care Provider Encounter Details Date Type Department Care Team (Latest Contact Info) Description 01/31/2025 Orders Only [facility] Scanning, Provider Social History Tobacco Use Types Packs/Day Years Used Date Smoking Tobacco: Never Assessed Sex and Gender Information Value Date Recorded Sex Assigned at Not on file Legal Sex Male 6:25 PM STRAP SEWER Gender Identity Not on file Sexual Orientation Not on file documented as of this encounter Plan of Treatment Not on file documented as of this encounter Procedures Procedure Name Priority Date/Time Associated Diagnosis Comments CARDIOLOGY DOCUMENT SCAN 01/31/2025 documented in this encounter Results * Cardiology Document Scan (01/31/2025) Anatomical Region Laterality Modality Other us Provider Scanning CV CARDIAC SERVICES PROCEDURES Edited Result - Final documented in this encounter Visit Diagnoses Not on filedocumented in this encounter Care Teams Supervisor Roller Shop Relationship Specialty Start Date End Date Daniel Reza MD [address] [place] [address] PCP - General Family Medicine 10/22/20 documented as of this encounter
--- OUTSIDE RECORDS SUMMARY | 2025-03-14 03:27 | XMS_ITS | Encounter Summary ---
Author Organization [facility] Address [address] [place] [address] Care Team Providers Care Outside Plant Cable Engineer Name Role Phone Daniel Reza MD Primary Care Provider [phone] Sayda Jung MD Unavailable [phone] Encounter Details Date Type Department Care Team (Latest Contact Info) Description 01/20/2025 Results Follow-Up [facility] [facility], [facility] [address] [place], [place] [address] [place] [address] CBC, MANUAL DIFF, LIPID PANEL, COMPREHENSIVE METABOLIC PANEL, Additional followed-up results: 2 Social History Tobacco Use Types Packs/Day Years [...] 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 [address] [place] [address] documented as of this encounter Visit Diagnoses Not on filedocumented in this encounter Care Teams Outside Plant Cable Engineer Relationship Specialty Start Date End Date Daniel Reza MD [address] [place] [address] PCP - General FAMILY PRACTICE 09/05/15 Sayda Jung MD Three [facility]. [facility] [address] [place] [address] Candy Shear Scrapman CARDIOVASCULAR DISEASE 09/05/15 documented as of this encounter
--- OUTSIDE RECORDS SUMMARY | 2025-03-14 03:27 | XMS_ITS | Clinical Summary ---
Author Organization [facility] Address [address] [place] [address] Care Team Providers Care Inserter Name Role Phone Daniel Reza MD Primary Care Provider [phone] Sayda Jung MD Unavailable [phone] Allergies Active Allergy Reactions Criticality Noted Date Comments Erythromycin Nausea Only Medium 09/25/2016 Medications loratadine 10 MG tablet Take 1 tablet by mouth daily. 11/22/2012 Active multivitamin tablet Take 1 tablet by mouth daily. 09/13/2015 Active vitamin C 500 MG tablet Take 1 tablet by mouth daily. 12/07/2014 Active diphenhydrAMINE (BENADRYL ALLERGY) 25 MG tablet Take 1 tablet (25 mg total) by mouth nightly as needed. 09/25/2016 Active aspirin EC (ASPIRIN EC) 81 MG tablet Take 81 mg by mouth daily. Take 1/2 tablet by mouth daily 09/23/2018 Active atorvastatin (LIPITOR) 10 MG tablet TAKE 1 TABLET BY MOUTH ONCE DAILY NIGHTLY AT BEDTIME 90 tablet 12/22/2024 Active losartan (COZAAR) 25 MG tablet Take 1 tablet (25 mg total) by mouth daily. 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 09/25/2016 Dyslipidemia 09/25/2016 Nonrheumatic mitral valve regurgitation 09/26/19 17 Resolved Problems Problem Noted Date Diagnosed Date Resolved Date Screening for AAA (aortic abdominal aneurysm) 09/26/19 17 12/16/2019 Encounters Date Type Department Care Team Description 02/21/2025 Telephone [facility], [place] [address] [place] [address] Ilana Garcia RN Concerns 02/21/2025 Telephone [facility], [place] [address] [place] [address] Sayda Jung MD Surgical Clearance ([facility] requesting cardiac clearance) 02/09/2025 Telephone [facility], [address] [address] Ilana Garcia RN Blood Pressure 02/07/2025 Results Follow-Up [facility], [address] [address] Ilana Garcia RN USE ECHOCARDIOGRAM 01/31/2025 12:06 PM CDT - 01/31/2025 11:59 PM CDT Hospital Encounter [facility] Non Invasive [place] [address] Sayda Jung MD Discharge Disposition: Home or Self Care (Routine Discharge) 01/31/2025 Travel 01/30/2025 Results Follow-Up [facility], [address] [address] Ilana Garcia RN IMAGE STUDY 01/27/2025 Telephone [facility], [address] [address] Sayda Jung MD Information ([facility]) 01/25/2025 Telephone [facility], [address] [address] Sayda Jung MD Information ([facility] ED) 01/20/2025 Results Follow-Up [facility] [address], [facility] [place] [address] Ilana Garcia RN CBC, MANUAL DIFF, LIPID PANEL, COMPREHENSIVE METABOLIC PANEL, Additional followed-up results: 2 01/19/2025 10:15 AM CDT Office Visit [facility] [address], [facility] [address] [place] [address] Sayda Jung MD Coronary Artery Disease (Annual follow up) 01/19/2025 Travel 01/13/2025 Scan [facility] [address], [place] [address] [place] [address] Scanned, Doc Pccl 01/13/2025 Scan [facility] [address], [place] [address] [place] [address] Scanned, Doc Pccl 01/13/2025 Scan [facility] [address], [place] [address] [place] [address] Scanned, Doc Pccl 01/13/2025 Scan [facility] [address] [facility] [address], [address] [address] Scanned, Doc Pccl 01/09/2025 Scan [facility] [address] [facility] [address], [place] [address] [place] [address] Scanned, Doc Pccl from Last 3 Months Family History Medical History Relation Comments CABG Brother X3 Hyperlipidemia Brother non hodgkin's lymphoma, agent orange exposure Br other skin cancer Brother nose and ear Atherosclerosis Father Coronary artery disease Father Alzheimer's Disease Mother Positive for heart disease Other Alzheimer's Disease Sister Relation Status Comments Brother (Age 74) Father (Age 71) Mother (Age 76) Other Sister Alive Social History Tobacco Use Types Packs/Day Years Used Date Smoking Tobacco: Former Cigarettes Smokeless Tobacco: Never Tobacco Cessation:Counseling Given: Not Answered Comments:as a teenager Alcohol Use Standard Drinks/Week Comments No 0 (1 standard drink = 0.6 oz pur e alcohol) Sex and Gender Information Value Date Recorded Sex Assigned at Not on file Legal Sex Male 2:48 AM CDT Gender Identity Not on file Sexual Orientation Not on file Occupation Industry Job Start Date Job End Date [employer] Not on file Not on file Not on file Last Filed Vital Signs Vital Sign Reading Time Taken Comments Blood Pressure 132/80 01/19/2025 10:38 AM CDT Pulse 57 01/19/2025 10:08 AM CDT Temperature - - Respiratory Rate - - Oxygen Saturation 98% 01/19/2025 10:08 AM CDT Inhaled Oxygen Concentration - - Weight 72.6 kg (160 lb) 01/19/2025 10:08 AM CDT Height 172.7 cm (5' 8) 01/19/2025 10:08 AM CDT Body Mass Index 24.33 01/19/2025 10:08 AM CDT Plan of Treatment Upcoming Encounters Date Type Department Care Team (Late st Contact Info) Description 01/25/2026 10:15 AM CDT Office Visit [facility], [facility] [address] [place], [place] [id number] Sayda Jung MD [address]. [facility] [address] [place], [place] [id number] Health Maintenance Due Date Last Done Comments DTaP, Tdap and Td Vaccines ( 1 - Tdap) 1965 Pneumococcal Vaccine: 50+ Ye ars (1 of 2 - PCV) 1965 Zoster Vaccines (1 of 2) 1996 Annual Medicare Wellness Visit 10/06/2011 RSV Immunization or 60+ Years (1 - 1-dose 75+ series) 2021 COVID-19 Vaccine (1 - 2024-2 6 season) 2024 Influenza Adult (#1) 2025 Hepatitis C Completed 01/23/2017 Hepatitis A Vaccines Aged Out No long er eligible based on patient's age to complete this topic Meningococcal B Vaccine Aged Out No l onger eligible based on patient's age to complete this topic Meningococcal Vaccine Aged Out No fatmata catalino eligible based on patient's age to complete this topic RSV Immunizations Under 20 Months Aged Out No longer eligible based on patient's age to complete this topic Procedures Procedure Name Priority Date/Time Associated Diagnosis Comments USE ECHOCARDIOGRAM Routine 01/31/2025 1: 56 PM CDT Nonrheumatic mitral valve regurgitation ELECTROCARDIOGRAM (NON MIDMARK ACQUIRED) Routine 01/19/2025 10:12 AM CDT Coronary artery disease involving saxman coronary artery of saxman heart with angina pectoris CT GENERIC Routine 01/13/2025 ECG GENERIC (SCAN ORDER) Routine 01/13/2025 COMPREHENSIVE METABOLIC PANEL Routine 01/13/2025 CBC, MANUAL DIFF Routine 01/13/2025 IMAGE GENERIC Routine 01/13/2025 IMAGE GENERIC Routine 01/09/2025 COMPREHENSIVE METABOLIC PANEL Routine 01/02/2025 LIPID PANEL Routine 01/02/2025 CBC, MANUAL DIFF Routine 01/02/2025 HEMOGLOBIN, GLYCOSYLATED Routine 01/02/2025 HEPATITIS C ANTIBODY Routine 01/23/2017 1:21 PM CDT from Last 3 Months or Most Recently Relevant to Health Maintenance Results * USE ECHOCARDIOGRAM (01/31/2025 1:56 PM CDT) Anatomical Region Laterality Modality Cardiac Echocardiogram 01/31/2025 1:51 PM CDT Narrative 01/31/2025 4:52 PM CDT Echocardiography Report Pat.Name: CORTES LYLES Pat.ID: [id number] St.Date: 01/31/2025 Refer.RICKY JUNG Exam Time: 1:51:00 PM Study Type:ECHO WITH CARDIAC DOPPLER COMP Height: 68.1 in Weight: 160 lb BSA: 1.86 m2 Age: 7 1945,79Y Sex: M BP: 147/76 HR: 55 bpm Sonogrphr: Olivia Hernandez [facility] Pat. Stat.:Outpatient Reason for Study:Mitral regurgitation Procedures: 2D, M-mode, Doppler, Color Flow, The study quality is technically adequate. Race: W ++++++++++++++++++++++++++++++++++++ SUMMARY: ++++++++++++++++++++++++++++++++++++ The left ventricular systolic function is normal. Estimated left ventricular ejection fraction is 55-60%. Left ventricular diastolic function is normal. Wall motion appears normal in all segments. Mild mitral regurgitation. Trace to mild tricuspid regurgitation. Compared to the previous study the ejection fraction has remained stable. Mitral and tricuspid regurgitation have not changed. ++++++++++++++++++++++++++++++++++++ FINDINGS: ++++++++++++++++++++++++++++++++++++ LV: The left ventricular size is normal. The left ventricular systolic function is normal. Estimated left ventricular ejection fraction is 55-60%. No concentric left ventricular hypertrophy. Left ventricular diastolic function is normal. WM: Wall motion appears normal in all segments. RV: The right ventricular size is at the upper limits of normal. Right ventricular systolic function is normal. IVS: Mild septal hypertrophy. No evidence of ventricular septal defect. LA: The left atrial volume is normal ( less than 34 ml/M2). RA: Right atrial size is normal. IAS: Atrial septum appears intact. RAIMUNDO: No evidence of pericardial effusion. AO: Normal aortic root. PA: Estimated right atrial pressure of 3 mmHg. SVn: Inferior vena cava is normal. Inferior vena cava shows >50% collapse with respiration consistent with normal right atrial pressure. Other: Compared to the previous study the ejection fraction has remained stable. Mitral and tricuspid regurgitation have not changed. AV: The aortic valve is trileaflet. No evidence of aortic valve stenosis. Trace aortic regurgitation. MV: Mild mitral regurgitation. No evidence of mitral stenosis. Calcified anterior and posterior mitral annulus. PV: Structurally normal pulmonic valve. No evidence of pulmonic valve stenosis. A trace of pulmonic regurgitation. TV: Structurally normal tricuspid valve. Trace to mild tricuspid regurgitation. Right ventricular systolic pressure is 27 mmHg. No evidence of tricuspid valve stenosis. Mild tricuspid valve prolapse. ++++++++++++++++++++++++++++++++++++ MEASUREMENTS: ++++++++++++++++++++++++++++++++++++ DOPPLER LVOT LVOTpkPG 4.7 mmHg LVOT SV 68.7 ml LVOT TVI 22.3 cm PSV 108 cm/s LVOTmnPG 2.2 mmHg Right Atrium RA Press 3 mmHg Major [place] (End 4.2 cm CO 0.3 l/min Volume (Systole 17.5 ml/m2 Cardiac ejectio 14.2 % Global Longitud 11.2 % Major [place] (End 3.3 cm HR 56 bpm Volume (Diastol 15 ml/m2 SV 2.5 ml/m2 Pulmonary Veins PVnpkVeld 41 cm/s PVnVs/Vd 1.68 PVnpkVels 69 cm/s PVn A Dur 137 msec AV Forward Flow AV TVI 27.8 cm AV pkPG 8 mmHg AV pkVel 141 cm/s (100-170) Area (TVI) 2.47 cm2 (3-5)* AV mnPG 4 mmHg Area (Burke) 2.36 cm2 (3-5)* MV Forward Flow MV mnPG 1.1 mmHg MV pkE 63 cm/s (60-130) MV pkPG 2.5 mmHg MV pkA 91 cm/s PV Forward Flow PV pkVel 144 cm/s (60-90)+* PV AC 120 msec PV pkPG 8.3 mmHg PV Regurg Flow PV pkVel 87 cm/s TV Regurg Flow TV pkPG 24 mmHg TV pkVel 245 cm/s (30-70)* Lat E' Lat e 9.9 cm/s Lat E/E' Lat E/e 6.36 Med E' Med e 6.96 cm/s Med E/E' Med E/e 9.05 AV Antegrade Flow AV AC/ET 0.15 Ratio of LVOT M 0.77 AC 45 millisecond Ratio of LVOT V 0.803 AV ET 300 millisecond Left Atrium CO 0.9 l/min CO 0.9 l/min Left Atrial Eje 32.9 % Left Atrial Eje 60.8 % Major [place] (End 4.5 cm Major [place] (End 4 cm Left Atrial ED 14.9 ml/m2 Left Atrial ED 5.4 ml/m2 Major [place] (End 5 cm Major [place] (End 4 cm Left Atrial ES 22.2 ml/m2 Left Atrial ES 13.9 ml/m2 Global Longitud 12 % Global Longitud 9.6 % HR 66 bpm HR 56 bpm SV 7.3 ml/m2 SV 8.5 ml/m2 LA Biplane CO 1.2 l/min Left Atrial ES 19.7 ml/m2 Left Atrial Eje 52 % Global Longitud 10.8 % Major [place] (End 4.5 cm HR 66 bpm Left Atrial ED 9.4 ml/m2 SV 10.2 ml/m2 Major [place] (End 5 cm Left Ventricle Left Ventricula 155 mmHg SV 30.9 ml/m2 MV Pk Burke to LV 7.48 CO 2.7 l/min CO 3.8 l/min LVEF 54.2 % LVEF 60.7 % Left Ventricle 7.7 cm Left Ventricle 7.3 cm LVEDV 47.7 ml/m2 LVEDV 51 ml/m2 Left Ventricle 6.3 cm Left Ventricle 6 cm LVESV 21.9 ml/m2 LVESV 20.1 ml/m2 Global Longitud -21 % Global Longitud -22.3 % HR 56 bpm HR 66 bpm LV Mass 52.9 g/m2 LV Mass 53 g/m2 SV 25.8 ml/m2 LV Biplane CO 3.3 l/min LVESV 21.5 ml/m2 LVEF 57.4 % Global Longitud -21.7 % Left Ventricle 7.7 cm HR 66 bpm LVEDV 50.6 ml/m2 LV Mass 54.2 g/m2 Left Ventricle 6.3 cm SV 29 ml/m2 LV Triplane Global Longitud -21.7 % MV Antegrade Flow AC 453 millisecond MV E/A 0.69 Mitral Valve A 1.44 MV E Decel time 207 millisecond MV Antegrade Flow Continuity Equation by Velocity Time Integral Orf Area 2.38 cm2 Pulmonary Artery Mean Pulmonary 13 mmHg Systolic Pulmon 0.18 Pulmonary Arter 6 mmHg Pulmonary Arter 27 mmHg PV Antegrade Flow Acceleration Sl 722 cm/s2 PV Regurgitant Flow Pressure Gradie 2.7 mmHg Right Ventricle RV Peak Diastol 17.1 centimeters per second Right Ventricul 6.6 square centimeters per square meter Tricuspid Valve 0.46 Right Ventricul 50.2 % Right Ventricul 7.94 centimeters per second Global Longitud -24.7 % Right Ventricul 14.4 centimeters per second Global Longitud -28.8 % Right Ventricul 13.2 square centimeters per square meter Global Longitud -19.8 % [place] (End 7.4 cm HR 56 bpm [place] (End 5.8 cm TV Regurgitant Flow RV Pk PG 27 mmHg 2D LVPW LVPWd 0.95 cm Ratios IVS Ventricular Septum IVSd 1.35 cm Left Ventricle LVIDd 3.4 cm (4.3-5.1)* LV Mass 122 gram LVIDs 2.46 cm (2-4) Left Ventricle 0.56 Aorta Ascending Aorti 3.72 cm AO Dd 1.88 cm LVOT Cardiovascular 3.08 cm2 Cardiovascular 1.98 cm Right Ventricle Major [place] (Natalie 5.56 cm RVIDd 3.02 cm MMODE Tricuspid Valve Tricuspid annul 2.64 cm <Electronic Signature> 01/31/2025 04:52 PM Sayda Jung M.D. Procedure Note Sayda Jung MD - 01/31/2025 Echocardiography Report Pat.Name: CORTES LYLES Pat.ID: [id number] .Date: 01/31/2025 Refer.MD: Caren JUNG Exam Time: 1:51:00 PM Study Type:ECHO WITH CARDIAC DOPPLER COMP Height: 68.1 in Weight: 160 lb BSA: 1.86 m2 Age: 7 1945,79Y Sex: M BP: 147/76 HR: 55 bpm Sonogrphr: Olivia Hernandez [facility] Pat. Stat.:Outpatient Reason for Study:Mitral regurgitation Procedures: 2D, M-mode, Doppler, Color Flow, The study quality is technically adequate. Race: W ++++++++++++++++++++++++++++++++++++ SUMMARY: ++++++++++++++++++++++++++++++++++++ The left ventricular systolic function is normal. Estimated left ventricular ejection fraction is 55-60%. Left ventricular diastolic function is normal. Wall motion appears normal in all segments. Mild mitral regurgitation. Trace to mild tricuspid regurgitation. Compared to the previous study the ejection fraction has remained stable. Mitral and tricuspid regurgitation have not changed. ++++++++++++++++++++++++++++++++++++ FINDINGS: ++++++++++++++++++++++++++++++++++++ LV: The left ventricular size is normal. The left ventricular systolic function is normal. Estimated left ventricular ejection fraction is 55-60%. No concentric left ventricular hypertrophy. Left ventricular diastolic function is normal. WM: Wall motion appears normal in all segments. RV: The right ventricular size is at the upper limits of normal. Right ventricular systolic function is normal. IVS: Mild septal hypertrophy. No evidence of ventricular septal defect. LA: The left atrial volume is normal ( less than 34 ml/M2). RA: Right atrial size is normal. IAS: Atrial septum appears intact. RAIMUNDO: No evidence of pericardial effusion. AO: Normal aortic root. PA: Estimated right atrial pressure of 3 mmHg. SVn: Inferior vena cava is normal. Inferior vena cava shows >50% collapse with respiration consistent with normal right atrial pressure. Other: Compared to the previous study the ejection fraction has remained stable. Mitral and tricuspid regurgitation have not changed. AV: The aortic valve is trileaflet. No evidence of aortic valve stenosis. Trace aortic regurgitation. MV: Mild mitral regurgitation. No evidence of mitral stenosis. Calcified anterior and posterior mitral annulus. PV: Structurally normal pulmonic valve. No evidence of pulmonic valve stenosis. A trace of pulmonic regurgitation. TV: Structurally normal tricuspid valve. Trace to mild tricuspid regurgitation. Right ventricular systolic pressure is 27 mmHg. No evidence of tricuspid valve stenosis. Mild tricuspid valve prolapse. ++++++++++++++++++++++++++++++++++++ MEASUREMENTS: ++++++++++++++++++++++++++++++++++++ DOPPLER LVOT LVOTpkPG 4.7 mmHg LVOT SV 68.7 ml LVOT TVI 22.3 cm PSV 108 cm/s LVOTmnPG 2.2 mmHg Right Atrium RA Press 3 mmHg Major [place] (End 4.2 cm CO 0.3 l/min Volume (Systole 17.5 ml/m2 Cardiac ejectio 14.2 % Global Longitud 11.2 % Major [place] (End 3.3 cm HR 56 bpm Volume (Diastol 15 ml/m2 SV 2.5 ml/m2 Pulmonary Veins PVnpkVeld 41 cm/s PVnVs/Vd 1.68 PVnpkVels 69 cm/s PVn A Dur 137 msec AV Forward Flow AV TVI 27.8 cm AV pkPG 8 mmHg AV pkVel 141 cm/s (100-170) Area (TVI) 2.47 cm2 (3-5)* AV mnPG 4 mmHg Area (Burke) 2.36 cm2 (3-5)* MV Forward Flow MV mnPG 1.1 mmHg MV pkE 63 cm/s (60-130) MV pkPG 2.5 mmHg MV pkA 91 cm/s PV Forward Flow PV pkVel 144 cm/s (60-90)+* PV AC 120 msec PV pkPG 8.3 mmHg PV Regurg Flow PV pkVel 87 cm/s TV Regurg Flow TV pkPG 24 mmHg TV pkVel 245 cm/s (30-70)* Lat E' Lat e 9.9 cm/s Lat E/E' Lat E/e 6.36 Med E' Med e 6.96 cm/s Med E/E' Med E/e 9.05 AV Antegrade Flow AV AC/ET 0.15 Ratio of LVOT M 0.77 AC 45 millisecond Ratio of LVOT V 0.803 AV ET 300 millisecond Left Atrium CO 0.9 l/min CO 0.9 l/min Left Atrial Eje 32.9 % Left Atrial Eje 60.8 % [place] (End 4.5 cm Major [place] (End 4 cm Left Atrial ED 14.9 ml/m2 Left Atrial ED 5.4 ml/m2 Major [place] (End 5 cm Major [place] (End 4 cm Left Atrial ES 22.2 ml/m2 Left Atrial ES 13.9 ml/m2 Global Longitud 12 % Global Longitud 9.6 % HR 66 bpm HR 56 bpm SV 7.3 ml/m2 SV 8.5 ml/m2 LA Biplane CO 1.2 l/min Left Atrial ES 19.7 ml/m2 Left Atrial Eje 52 % Global Longitud 10.8 % [place] (End 4.5 cm HR 66 bpm Left Atrial ED 9.4 ml/m2 SV 10.2 ml/m2 Major [place] (End 5 cm Left Ventricle Left Ventricula 155 mmHg SV 30.9 ml/m2 MV Pk Burke to LV 7.48 CO 2.7 l/min CO 3.8 l/min LVEF 54.2 % LVEF 60.7 % Left Ventricle 7.7 cm Left Ventricle 7.3 cm LVEDV 47.7 ml/m2 LVEDV 51 ml/m2 Left Ventricle 6.3 cm Left Ventricle 6 cm LVESV 21.9 ml/m2 LVESV 20.1 ml/m2 Global Longitud -21 % Global Longitud -22.3 % HR 56 bpm HR 66 bpm LV Mass 52.9 g/m2 LV Mass 53 g/m2 SV 25.8 ml/m2 LV Biplane CO 3.3 l/min LVESV 21.5 ml/m2 LVEF 57.4 % Global Longitud -21.7 % Left Ventricle 7.7 cm HR 66 bpm LVEDV 50.6 ml/m2 LV Mass 54.2 g/m2 Left Ventricle 6.3 cm SV 29 ml/m2 LV Triplane Global Longitud -21.7 % MV Antegrade Flow AC 453 millisecond MV E/A 0.69 Mitral Valve A 1.44 MV E Decel time 207 millisecond MV Antegrade Flow Continuity Equation by Velocity Time Integral Orf Area 2.38 cm2 Pulmonary Artery Mean Pulmonary 13 mmHg Systolic Pulmon 0.18 Pulmonary Arter 6 mmHg Pulmonary Arter 27 mmHg PV Antegrade Flow Acceleration Sl 722 cm/s2 PV Regurgitant Flow Pressure Gradie 2.7 mmHg Right Ventricle RV Peak Diastol 17.1 centimeters per second Right Ventricul 6.6 square centimeters per square meter Tricuspid Valve 0.46 Right Ventricul 50.2 % Right Ventricul 7.94 centimeters per second Global Longitud -24.7 % Right Ventricul 14.4 centimeters per second Global Longitud -28.8 % Right Ventricul 13.2 square centimeters per square meter Global Longitud -19.8 % Major [place] (End 7.4 cm HR 56 bpm Major [place] (End 5.8 cm TV Regurgitant Flow RV Pk PG 27 mmHg 2D LVPW LVPWd 0.95 cm Ratios IVS Ventricular Septum IVSd 1.35 cm Left Ventricle LVIDd 3.4 cm (4.3-5.1)* LV Mass 122 gram LVIDs 2.46 cm (2-4) Left Ventricle 0.56 Aorta Ascending Aorti 3.72 cm AO Dd 1.88 cm LVOT Cardiovascular 3.08 cm2 Cardiovascular 1.98 cm Right Ventricle Major [place] (Natalie 5.56 cm RVIDd 3.02 cm MMODE Tricuspid Valve Tricuspid annul 2.64 cm <Electronic Signature> 01/31/2025 04:52 PM Sayda Jung M.D. us Sayda Jung MD ECHO Final Result * ELECTROCARDIOGRAM (01/19/2025 10:12 AM CDT) ECG QT 387 [facility] QTC 376 [facility] 01/19/2025 10:1 2 AM CDT Narrative 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 Sayda Jung MD PROCEDURES-ORDERABLE NO CHARGE Final Result [facility] * CT (01/13/2025) Anatomical Region Laterality Modality Other us Doc Pccl Scanned SCANNING Final Result * ECG (01/13/2025) us Doc Pccl Scanned SCANNING Final Result Performing Organization Address [facility] Co de Phone Number HS ONBASE * IMAGE STUDY (01/13/2025) Only the most recent of2 resultswithin the time period is included. Anatomical Region Laterality Modality Other us Doc Pccl Scanned SCANNING Edited Result - Final * COMPREHENSIVE METABOLIC PANEL (01/13/2025) Only the most recent of2 resultswithin the time period is included. SODIUM S/P/B 138 GLUCOSE 150 mg/dL AST 43 BUN 14 CREATININE S/P/B 0.80 0.7 - 1.3 CALCIUM S/P/B 9.5 POTASSIUM S/P/B 4.0 CHLORIDE S/P/B 101 ALT 30 GFR ESTIMATE >60 us Default History Genericprovider LABORATORY Edited Result - Final * CBC, MANUAL DIFF (01/13/2025) Only the most recent of2 resultswithin the time period is included. WBC 6.6 HGB 14.3 HCT 43.8 PLT 208 us Default History Genericprovider LABORATORY Edited Result - Final * HEMOGLOBIN, GLYCOSYLATED (01/02/2025) HGB A1C 5.8 % us Default History Genericprovider LABORATORY Edited Result - Final * LIPID PANEL (01/02/2025) CHOLESTEROL 133 TRIGLYCERIDES 74 HDL 39 LDL (CALCULATED) 79 us Default History Genericprovider LABORATORY Edited Result - Final * HEPATITIS C ANTIBODY (01/23/2017 1:21 PM CDT) HEPATITIS C AB NON-REACTI VE NON-REACTI VE 01/23/2017 7:[address] [facility] Comment: TESTING PERFORMED [facility] [place] [address] SERUM OR PLASMA SPECIMEN / Unknown 01/23/2017 1:21 PM CDT 01/23/2017 1:22 PM CDT us Generic Conversion Md [facility] Final R esult [facility] [address] [place] [address], [place] [phone] from Last 3 Months or Most Recently Relevant to Health Maintenance Insurance [facility] MEDICARE [facility] MEDICARE Care Teams Inserter Relationship Specialty Start Date End Date Daniel Reza MD [address] [place] [address] PCP - General FAMILY PRACTICE 09/05/15 Sayda Jung MD [facility] [address] [place] [address] [employer] CARDIOVASCULAR DISEASE 09/05/15
[2025-03-14 08:09] VITALS: BP 140/96; PULSE 70; RESP 18; TEMP 36.1; O2SAT 100; BMI 23.4
[2025-03-14] MEDS: LACTATED RINGERS 1,000 ML 150 ML IV CONT (08:17)
--- NOTE | 2025-03-14 08:24 | WPDANESEPPF ---
Anes - Initial Pre Proc Eval Procedure: Operation Date: 03/14/25 09:30 Proposed Procedures p EGD & Screening Colonoscopy - Zack Dukes MD Date/Time: 03/14/25 08:24 Surgeon: Zack Dukes MD Pre Op Diagnosis: Chronic cough/screening/hx of colon polyps Patient Data Age: 79 Gender: M Height: 1.73 m Weight: 70 kg Last Vital Signs Temp 36.1 C L 03/14/25 08:09 Pulse 70 03/14/25 08:09 Resp 18 03/14/25 08:09 BP 140/96 H 03/14/25 08:09 Pulse Ox 100 03/14/25 08:09 O2 Del Method Room Air 03/14/25 08:09 Allergies Allergy/AdvReac Type Severity Reaction Status Date / Time gluten Allergy other Verified 03/14/25 08:08 azithromycin AdvReac Mild upset Verified 03/14/25 08:08 stomach sulfamethoxazole (From AdvReac Mild Fever Verified 03/14/25 08:08 Bactrim) trimethoprim (From Bactrim) AdvReac Mild Fever Verified 03/14/25 08:08 Home Medications ?Medication ?Instructions ?Recorded ?Confirmed ?Type loratadine 10 mg tablet 10 mg PO DAILY 08/26/19 03/14/25 History multivitamin 1 tablet PO DAILY 08/26/19 03/14/25 History atorvastatin 20 mg tablet 10 mg PO DAILY 10/21/21 03/14/25 History aspirin 81 mg tablet,delayed 81 mg PO DAILY 05/20/23 03/14/25 History release (Adult Low Dose Aspirin) omega 3-slm-olk-fish oil 300 1 cap PO DAILY 05/20/23 03/14/25 History mg-1,000 mg capsule (Fish Oil) ascorbic acid (vitamin C) 500 mg 500 mg PO DAILY 01/07/24 03/14/25 History tablet (Vitamin C) losartan 25 mg tablet (Cozaar) 25 mg PO DAILY 02/21/25 03/14/25 History Patient hx anesthesia problems: none Family hx anesthesia problems: none Results Review: All pre-operative results and documents have been reviewed as part of the pre-operative evaluation. [facility] Past Medical History Medical History BPH (benign prostatic hyperplasia) Adenomatous colon polyp Actinic keratosis (~11/11/23) High cholesterol Celiac disease CAD (coronary artery disease) non-obstructive Surgical History Surgical History H/O bilateral inguinal hernia repair H/O elbow surgery S/P lateral meniscus repair of right knee Family History Family History Mother Family history of Alzheimer's disease Father Family history of coronary artery disease Atheroscler nonautolg biological bypass graft left leg w/ulceration Atherosclerosis Sibling Family history of coronary artery disease Family history of Alzheimer's disease Sibling No problems noted. 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 Gender identity (if verbalized by the patient): Male Sexual Orientation (if Verbalized by the Patient): Straight or Heterosexual Spiritual care concerns: No Anes - Eval Final PreProcedure Day of Procedure 03/14/25 08:24 Patient weight: normal Heart: regular rate and rhythm Lungs: clear to auscultation Airway: Mallampati scale class II Neurological: alert and oriented Last oral intake: >/= 8 hours ASA classification: III Emergent: no Anesthetic plan: proceed Anesthesia type and monitoring: general GIVS and standard monitoring Results Review: All pre-operative results and documents have been reviewed as part of the pre-operative evaluation. Informed Consent: The patient's anesthetic plan and its attendant risks and benefits were discussed with the patient/family/POA. Questions were solicited and answers provided to the satisfaction of the patient/family/POA.
--- NOTE | 2025-03-14 09:00 | PM.HPGS ---
History of Present Illness History of Present Illness Consent: Risks, benefits, and alternatives have been discussed and questions answered. Patient agrees to proceed with procedure. Chief complaint: Chronic cough/screening/hx of colon polyps Narrative: Cortes Garcia is a 79 year old male with intermittend dysphagia for years, had egd 2018 with mathur 60 Fr, last colonoscopy with polyp 2019, also h/o celiac on gluten free diet Review of Systems Review of Systems: All systems reviewed & are unremarkable except as noted in HPI and below PMFSH Past Medical History Medical History (Updated 03/14/25 @ 09:01 by Zack Dukes MD) Dysphagia BPH (benign prostatic hyperplasia) Adenomatous colon polyp Actinic keratosis (~11/11/23) High cholesterol Celiac disease CAD (coronary artery disease) non-obstructive Surgical History Surgical History H/O bilateral inguinal hernia repair H/O elbow surgery S/P lateral meniscus repair of right knee Family History Family History Mother Family history of Alzheimer's disease Father Family history of coronary artery disease Atheroscler nonautolg biological bypass graft left leg w/ulceration Atherosclerosis Sibling Family history of coronary artery disease Family history of Alzheimer's disease Sibling No problems noted. 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 Gender identity (if verbalized by the patient): Male Sexual Orientation (if Verbalized by the Patient): Straight or Heterosexual Spiritual care concerns: No Meds Home Medications and Allergies Home Medications ?Medication ?Instructions ?Recorded ?Confirmed ?Type loratadine 10 mg tablet 10 mg PO DAILY 08/26/19 03/14/25 History multivitamin 1 tablet PO DAILY 08/26/19 03/14/25 History atorvastatin 20 mg tablet 10 mg PO DAILY 10/21/21 03/14/25 History aspirin 81 mg tablet,delayed 81 mg PO DAILY 05/20/23 03/14/25 History release (Adult Low Dose Aspirin) omega 3-xqi-yjb-fish oil 300 1 cap PO DAILY 05/20/23 03/14/25 History mg-1,000 mg capsule (Fish Oil) ascorbic acid (vitamin C) 500 mg 500 mg PO DAILY 01/07/24 03/14/25 History tablet (Vitamin C) losartan 25 mg tablet (Cozaar) 25 mg PO DAILY 02/21/25 03/14/25 History Allergies Allergy/AdvReac Type Severity Reaction Status Date / Time gluten Allergy other Verified 03/14/25 08:08 azithromycin AdvReac Mild upset Verified 03/14/25 08:08 stomach sulfamethoxazole (From AdvReac Mild Fever Verified 03/14/25 08:08 Bactrim) trimethoprim (From Bactrim) AdvReac Mild Fever Verified 03/14/25 08:08 Vital Signs Vital Signs - 24 hr 03/14/25 08:09 Temperature 97 F L Pulse Rate 70 Respiratory Rate 18 Blood Pressure 140/96 H Pulse Oximetry 100 Oxygen Delivery Room Air Exam Const: General: comfortable and no acute distress HENMT: Face/Nose/Sinus: Normal nares present Eyes: General: appearance normal, both eyes and all related structures Neck: Neck: no JVD Resp: Auscultation: clear to auscultation bilaterally Cardio: Rate: regular rate Rhythm: regular rhythm GI: Inspection: non-distended GI Palp: Yes Soft to palpation Skin: General skin exam: normal color Extrem: General: normal to inspection Psych: Mental Status: mental status grossly normal Assessment and Plan Assessment and plan (1) Adenomatous colon polyp: Code(s): D12.6 - Benign neoplasm of colon, unspecified Status: Acute Assessment and Plan: colonoscopy (2) Dysphagia: Code(s): R13.10 - Dysphagia, unspecified Status: Acute Assessment and Plan: egd (3) Celiac disease: Code(s): K90.0 - Celiac disease Status: Acute
--- NOTE | 2025-03-14 09:16 | SUR.OPER ---
EGD end time 910. Colonoscopy start time 913.
--- NOTE | 2025-03-14 09:18 | S_PTH ---
PATIENT: Cortes Garcia LOC: [facility]#:[id number] AGE/SX: 79/M ROOM: RE03/14/[address]: Zack Dukes MD : 1945 BED: DIS: 03/14/2025 SPEC #: [id number] RECD: 03/14/25 09:54 STATUS: MYRNA REJaxon #: [id number] NATALIE: 03/14/25 09:[address]: Zack Dukes DEPT: [facility] Surgical RECD BY: Maricruz Chavez MLT, ([facility]) ENTERED: 03/14/25 09:55 SP TYPE: Surgical OTHR DR: Daniel Reza MD Tissues: A - Small Bowel Bx B - Gastric Biopsy C - Esophageal Biopsy Procedures: Hematoxylin and Eosin Stain Gross and Microscopic Level 4 H.Pylori
[2025-03-14 09:25] VITALS: BP 88/55; PULSE 61; RESP 20; O2SAT 99
[2025-03-14 09:35] VITALS: BP 106/62; PULSE 51; RESP 12; O2SAT 100
[2025-03-14 09:45] VITALS: BP 112/68; PULSE 51; RESP 11; O2SAT 100
[2025-03-14 09:53] VITALS: BP 138/81; PULSE 57; RESP 21; O2SAT 100
== END 2025-03-14 10:34 | disposition home or self-care (01) ==
PROVIDERS: PCP Family Medicine; Referring Provider Student in an Organized Health Care Education/Training Program; Visit Provider Internal Medicine Gastroenterology
PROC: 0DJ08ZZ Inspection of Upper Intestinal Tract, Via Natural or Artificial Opening Endoscopic (ICD-10-PCS; CPT 45378; principal; 2025-03-14 09:30)
DX: Z12.11 Encounter for screening for malignant neoplasm of colon (principal); K64.8 Other hemorrhoids; K57.30 Diverticulosis of large intestine without perforation or abscess without bleeding; K22.2 Esophageal obstruction; K44.9 Diaphragmatic hernia without obstruction or gangrene; K29.50 Unspecified chronic gastritis without bleeding; N40.0 Benign prostatic hyperplasia without lower urinary tract symptoms; K22.89 Other specified disease of esophagus; K90.0 Celiac disease; K86.81 Exocrine pancreatic insufficiency; E78.00 Pure hypercholesterolemia, unspecified; I25.10 Atherosclerotic heart disease of native coronary artery without angina pectoris; R05.3 Chronic cough; L57.0 Actinic keratosis; Z79.82 Long term (current) use of aspirin; Z98.890 Other specified postprocedural states; Z86.0100 Personal history of colon polyps, unspecified; Z82.49 Family history of ischemic heart disease and other diseases of the circulatory system
CPT/HCPCS: 43239; 43249; G0105; 88305; 88342; J2003; J2704; J7120